=== PATIENT | male | born 2005 | race Caucasian/White ===

== ENCOUNTER 2024-11-19 04:18 | Emergency (ER) | payer OTHER, SELFPAY ==
[2024-11-19 04:22] VITALS: BP 142/98; PULSE 122; RESP 15; TEMP 36.6; O2SAT 100
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
--- OUTSIDE RECORDS SUMMARY | 2024-11-19 05:26 | XMS_ITS | Encounter Summary ---
Author Organization [facility] Address [address] [place] [address] Care Team Providers Care Cut Off Sawyer Name Role Phone Dayanara Perea DO, Santiago B Primary Care Provider Michell Saenz RN Unavailable Michell Saenz RN Unavailable Reason for Visit * Reason Onset Date Comments MEDICATION REFILL 11/08/2017 Encounter Details Date Type Department Care Team (Late st Contact Info) Description 11/08/2017 Refill [facility] Pediatric[facility] - Endocrinology [address] 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 No 09/18/2016 Is person blind or have serious difficulty seein g? No 09/18/2016 Does person have serious dif ficulty walking/climbing stairs? No 09/18/2016 Does person have difficulty dressing/bathing? No 09/18/2016 Does person have difficulty doing errands alone? No 09/18/2016 Cognitive Status Response Date of Assessm ent Does person have difficulty concentrating/remembering/making decisions? No 09/18/2016 documented as of this encounter Plan of Treatment Upcoming Encounters Date Type Department Care Team (Late st Contact Info) Description 02/01/2025 9:30 AM CDT Office Visit [facility] - Internal Med [address] [place] [address] Raj Ladd MD [address] [place] [id number] documented as of this encounter Visit Diagnoses Not on filedocumented in this encounter Additional Health Concerns Infection Onset Date Last Indicated Resolved Time COVID-19 Under Investigation 09/23/2022 09/24/2022 09/24/2022 1:36 AM CASTING REPAIRER COVID-19 Under Investigation 07/28/2023 07/28/2023 07/28/2023 9:35 PM CDT documented as of this encounter Care Teams Cut Off Sawyer Relationship Specialty Start Date End Date Erickson Nichole Jr., DO PCP - General Pediatrics 09/15/16 Michell Saenz RN Residential Mortgage UnderwriterManager Film 08/02/23 08/06/23 Michell Saenz RN Residential Mortgage UnderwriterManager Film 07/06/24 07/10/24 documented as of this encounter
--- OUTSIDE RECORDS SUMMARY | 2024-11-19 05:26 | XMS_ITS | Patient Health Summary ---
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 and somewhat heterogeneous echotexture, most commonly due to fatty infiltration. Reading Radiologist: Mallory Niño on 12/22/2022 at 9:32 AM Narrative 12/22/2022 9:32 AM SHRINK PIT OPERATOR INDICATION: Elevated LFTs COMPARISON: None available. TECHNIQUE: Ultrasound imaging of the abdomen right upper quadrant per department protocol. FINDINGS: Liver: The liver is enlarged with diffusely increased and somewhat heterogeneous echotexture. No intrahepatic biliary ductal dilation is seen. Portal venous flow is hepatopetal. Gallbladder: The lumen is anechoic. There is no gallbladder wall thickening. There is no dilation of the common bile duct. Pancreas: Visualized portions of the pancreas are normal in appearance. Right kidney: 11.4 cm in length. The cortical thickness and echotexture are normal. Other: No fluid or mass is present. Procedure Note [place] Mallory NatashaDO - 12/22/2022 INDICATION: Elevated LFTs COMPARISON: None available. TECHNIQUE: Ultrasound imaging of the abdomen right upper quadrant perdepartment protocol. FINDINGS: Liver: The liver is enlarged with diffusely increased and somewhatheterogeneous echotexture. No intrahepatic biliary ductal dilation is seen. Portalvenous flow is hepatopetal. Gallbladder: The lumen is anechoic. There is no gallbladder wallthickening. There is no dilation of the common bile duct. Pancreas: Visualized portions of the pancreas are normal in appearance. Right kidney: 11.4 cm in length. The cortical thickness and echotextureare normal. Other: No fluid or mass is present. IMPRESSION Enlarged liver with diffusely increased and somewhat heterogeneousechotexture, most commonly due to fatty infiltration. Reading Radiologist: Mallory Niño on 12/22/2022 at 9:32 AM Toni Dover MD US ORDERABLES * PT-INR [facility] (12/18/2022 10:20 AM SHRINK PIT OPERATOR) PT 12.8 12.1 - 14.8 Seconds 12/18/2022 11:[address] [facility] INR 1.0 See Comment 12/18/2022 11:[address] [facility] Comment:The suggested therap eutic range for standard coumadin (warfarin) therapy is an INR of 2.0-3.0. For high-risk patients (Mechanical Mitral Valve Prosthesis, etc.), the suggested prophylactic therapeutic range is an INR of 2.5-3.5. Blood BLOOD SPECIMEN / Unknown Lab Venipuncture / Unknown 12/18/2022 10:20 AM SHRINK PIT OPERATOR 12/18/2022 10:38 AM SHRINK PIT OPERATOR Toni Dover MD LAB - COAGULATION OR DERABLES Performing Organization Address City/[facility]/ZIP Co de Phone Number [address] [address], [facility] [phone] * TISSUE TRANSGLUTAMINASE AB IGA (12/18/2022 10:20 AM SHRINK PIT OPERATOR) Only the most recent of2 resultswithin the time period is included. Tissue Transglutaminase (tTG) Ab, IgA <2 0 - 3 U/mL 12/19/2022 10:47 PM SHRINK PIT OPERATOR [facility] ([facility]) Comment: INTERPRETIVE INFORMATION: Tissue Transglutaminase (tTG) Antibody, IgA 3 U/mL or less: Negative 4-10 U/mL: Weak Positive 11 U/mL or greater: Positive Presence of the tissue transglutaminase (tTG) IgA antibody is associated with glutensensitive enteropathies such as celiac disease and dermatitis herpetiformis. tTG IgA antibody concentrations greater than 40 U/mL usually correlate with results of duodenal biopsies consistent with a diagnosis of celiac disease. For antibody concentrations greater or equal to 4 U/mL but less than or equal to 40 U/mL, additional testing for endomysial (MANSOOR) IgA concentrations may improve the positive predictive value for disease. Performed By: [facility] [address] [place] [address] Professor Of Business: Edward Bridges MD, PhD Blood BLOOD SPECIMEN / Unknown Lab Venipuncture / Unknown 12/18/2022 10:20 AM SHRINK PIT OPERATOR 12/18/2022 10:37 AM SHRINK PIT OPERATOR Toni Dover MD LAB - SEROLOGY ORDER JENNIFER Performing Organization Address City/[facility]/ZIP Co de Phone Number [facility] [address] * [id number] BLOOD PHENOTYPING PANEL (12/18/2022 10:20 AM SHRINK PIT OPERATOR) Dlfug-2-Pnvskzxzfd n Phenotype M1M2 12/21/2022 6:51 PM SHRINK PIT OPERATOR [facility] ([facility]) Comment: The patient appears to have a normal phenotype. All M alleles (including subtypes M1, M2, and M3) produce normal serum concentrations of roupr-6-hasqngbi inhibitor and are not associated with clinical disease. Caution in interpretation is advised if the patient has been transfused within the previous 21 days. Performed By: [facility] [address] [place] [address] Professor Of Business: Edward Bridges MD, PhD Nsvkp-1-Lsqjchbcbj n 104 90 - 200 mg/dL 12/21/2022 6:51 PM SHRINK PIT OPERATOR [facility] ([facility]) Comment:To convert to umol/L , multiply mg/dL by 0.185 Blood BLOOD SPECIMEN / Unknown Lab Venipuncture / Unknown 12/18/2022 10:20 AM SHRINK PIT OPERATOR 12/18/2022 10:37 AM SHRINK PIT OPERATOR Toni Dover MD LAB - CHEMISTRY PAOLA GHOTRA [facility]) [address] [place] [address], [facility] * LINDA BLOOD SCREEN W/REFLEX TITER (12/18/2022 10:20 AM SHRINK PIT OPERATOR) LINDA IgG None Detected None Detected 12/20/2022 9:34 AM SHRINK PIT OPERATOR [facility] ([facility]) Comment: If suspicion of connective tissue disease is strong and LINDA EIA is negative, consider testing for LINDA by IFA ([id number]). INTERPRETIVE INFORMATION: Anti-Nuclear Antibodies (LINDA), IgG by NBA Antinuclear Antibodies (LINDA), IgG by NBA: LINDA specimens are screened using enzyme-linked immunosorbent assay (NBA) methodology. All NBA results reported as Detected are further tested by indirect fluorescent assay (IFA) using HEp-2 substrate with an IgG-specific conjugate. The LINDA NBA screen is designed to detect antibodies against dsDNA, histones, SS-A (Ro), SS-B (La), Patel, Patel/SOFTWARE PROJECT LEAD, Scl-70, Dalila-1, centromeric proteins, other antigens extracted from the HEp-2 cell nucleus. LINDA NBA assays have been reported to have lower sensitivities than LINDA IFA for systemic autoimmune rheumatic diseases (SARD). Negative results do not necessarily rule out SARD. Performed By: [facility] [address] [place] [address] Professor Of Business: Edward Bridges MD, PhD Blood BLOOD SPECIMEN / Unknown Lab Venipuncture / Unknown 12/18/2022 10:20 AM SHRINK PIT OPERATOR 12/18/2022 10:38 AM SHRINK PIT OPERATOR Toni Dover MD LAB - CHEMISTRY PAOLA GHOTRA [facility] [employer]) [address] [place] [id number] * CYTOMEGALOVIRUS ANTIBODY IGG/IGM BLOOD (12/18/2022 10:20 AM SHRINK PIT OPERATOR) Cytomegalovirus Antibody IgG <0.20 U/mL 12/19/2022 4:39 PM SHRINK PIT OPERATOR [facility] [employer] ([facility]) Comment: INTERPRETIVE INFORMATION: Cytomegalovirus Antibody, IgG ??0.59 U/mL or less......... Not Detected ??0.6 - 0.69 U/mL........... Indeterminate-Repeat testing in ? 10-14 days may be helpful. ??0.70 U/mL or greater...... Detected In immunocompromised patients, CMV serology (IgG or IgM antibody titers) may not be reliable and may be misleading in the diagnosis of acute or reactivation CMV disease. The preferred method for diagnosis is culture of virus and/or demonstration of viral antigen in peripheral white cells (buffy coat), bronchoalveolar lavage (BAL) cells, or tissue biopsies. This test should not be used for blood donor screening, associated re-entry protocols, or for screening Human Cell, Tissues and Cellular and Tissue-Based Products (HCT/P). The best evidence for current infection is a significant change on two appropriately timed specimens, where both tests are done in the same laboratory at the same time. Cytomegalovirus Antibody IgM <8.0 <=29.9 AU/mL 12/19/2022 4:39 PM [facility] [employer] ([facility]) Comment: INTERPRETIVE INFORMATION: Cytomegalovirus Antibody, IgM ??29.9 AU/mL or Less ....... Not Detected ??30.0-34.9 AU/mL........... Indeterminate-Repeat testing ? in 10-14 days may be helpful. ??35.0 AU/mL or Greater .... Detected-IgM antibody to CMV ? detected which may indicate a ? current or recent infection. ? However, low levels of IgM ? antibodies may occasionally ? persist for more than 12 ? months post-infection. CMV serology is not useful for the evaluation of active or reactivated infection in immunocompromised patients. Molecular diagnostic tests (i.e. PCR)are preferred in these cases. This test should not be used for blood donor screening, associated re-entry protocols, or for screening Human Cell, Tissues and Cellular and Tissue-Based Products (HCT/P). Performed By: [facility] [address] [place] [address] Professor Of Business: Edward Bridges MD, PhD Blood BLOOD SPECIMEN / Unknown Lab Venipuncture / Unknown 12/18/2022 10:20 AM SHRINK PIT OPERATOR 12/18/2022 10:37 AM SHRINK PIT OPERATOR Toni Dover MD LAB - CHEMISTRY PAOLA GHOTRA [facility]) [address] * MICROSOMAL ANTIBODY LIVER/KIDNEY (12/18/2022 10:20 AM SHRINK PIT OPERATOR) Liver/Kidney Microsomal Antibody IgG <1:20 <1:20 12/20/2022 2:39 PM SHRINK PIT OPERATOR [facility] ([facility]) Comment: INTERPRETIVE INFORMATION: ??Kpbjd-Gfinzn-Qccxyruwk Abs, IgG Liver-Kidney Microsome IgG antibody (anti-LKM), as detected by indirect immunofluorescent antibody (IFA) techniques, may be observed in patients with autoimmune hepatitis type 2 (AIH-2), AIH-2 associated with autoimmune olbojtcjwekygcsdlq-yynfvykbfme-xrajwzebgr dystrophy (APECED), viral hepatitis C or D, and some forms of drug-induced hepatitis. This IFA does not differentiate among the four types of LKM antibodies (LKM-1, LKM-2, LKM-3, and a fourth type that recognizes CY and CY antigens). Of these, anti-LKM-1 (cytochrome [id number]) IgG antibodies are considered specific for AIH-2. This test was developed and its performance characteristics determined by [facility]. It has not been cleared or approved by the US Food and Drug Administration. This test was performed in a CLIA certified laboratory and is intended for clinical purposes. Performed By: [place] [address] Professor Of Business: Edward Bridges MD, PhD Blood BLOOD SPECIMEN / Unknown Lab Venipuncture / Unknown 12/18/2022 10:20 AM SHRINK PIT OPERATOR 12/18/2022 10:37 AM SHRINK PIT OPERATOR Toni Dover MD LAB - CHEMISTRY PAOLA GHOT[place] [facility] ([facility]) [address] * (ABNORMAL) DAVID-HUERTA VIRUS ANTIBODY PANEL (12/18/2022 10:20 AM SHRINK PIT OPERATOR) David-Huerta Viral Capsid Antigen Antibody IgM <36.0 0.0 - 35.9 U/mL 12/21/2022 2:09 PM SHRINK PIT OPERATOR [facility] ([facility]) Comment: ? Negative ?<36.0 ? Equivocal 36.0 - 43.9 ? Positive ?>43.9 David-Huerta Viral Capsid Antigen Antibody IgG >600.0(H) 0.0 - 17.9 U/mL 12/21/2022 2:09 PM SHRINK PIT OPERATOR [facility] ([facility]) Comment: ? Negative ?<18.0 ? Equivocal 18.0 - 21.9 ? Positive ?>21.9 David-Huerta Virus Antibody IgG Nuclear Antigen >600.0(H) 0.0 - 17.9 U/mL 12/21/2022 2:09 PM SHRINK PIT OPERATOR [facility] ([facility]) Comment: ? Negative ?<18.0 ? Equivocal 18.0 - 21.9 ? Positive ?>21.9 Interpretation David Huerta Virus Comment 12/21/2022 2:09 PM SHRINK PIT OPERATOR [facility] ([facility]) Comment: ? EBV Interpretation Chart Uribe: Antibody Present + ?Antibody Absent - Interpretation ? VCA-IgM ?? VCA-IgG ??EBNA-IgG No previous infection/ ?- ? - ? - Susceptible Primary infection (new ?+ ? + ? - or recent) Past Infection ? +or- ? + ? + See comment below* ?+ ? - ? - *Results indicate infection with EBV at some time however cannot predict the timing of the infection since antibodies to EBNA usually develop after primary infection or, alternatively, approximately 5-10% of patients with EBV never develop antibodies to EBNA. Blood BLOOD SPECIMEN / Unknown Lab Venipuncture / Unknown 12/18/2022 10:20 AM SHRINK PIT OPERATOR 12/18/2022 10:37 AM SHRINK PIT OPERATOR Narrative [facility] ([facility]) - 12/21/2022 2:09 PM SHRINK PIT OPERATOR Performed at: ??01 - [facility] [address] [place], [place] ??[id number] Host/Hostess: Yasmany Love PhD, Phone: ??[phone] Toni Dover MD LAB - CHEMISTRY PAOLA GHOTRA Performing Organization Address City/State/[facility] Co de Phone Number [facility]) [address] [place] [address] * SMOOTH MUSCLE ANTIBODY (12/18/2022 10:20 AM SHRINK PIT OPERATOR) Actin (Smooth Muscle) Antibody 3 0 - 19 Units 12/19/2022 4:09 PM SHRINK PIT OPERATOR [facility] ([facility]) Comment: ? Negative ? 0 - 19 ? Weak positive ? 20 - 30 ? Moderate to strong positive ? >30 Actin Antibodies are found in 52-85% of patients with autoimmune hepatitis or chronic active hepatitis and in 22% of patients with primary biliary cirrhosis. Blood BLOOD SPECIMEN / Unknown Lab Venipuncture / Unknown 12/18/2022 10:20 AM SHRINK PIT OPERATOR 12/18/2022 10:37 AM SHRINK PIT OPERATOR Narrative [facility] ([facility]) - 12/19/2022 4:09 PM SHRINK PIT OPERATOR Performed at: ??01 - [facility] [place] [address] [facility], [place], [place] ??[id number] Host/Hostess: Yasmany Love PhD, Phone: ??[phone] Toni Dover MD LAB - SEROLOGY ORDER JENNIFER [facility] ([facility]) [address] [place] [address] * (ABNORMAL) COMPREHENSIVE METABOLIC PANEL (12/18/2022 10:20 AM SHRINK PIT OPERATOR) Only the most recent of4 resultswithin the time period is included. BUN 18 7 - 26 mg/dL 12/18/2022 11:[address] [facility] Creatinine 0.50(L) 0.71 - 1.16 mg/dL 12/18/2022 11:13 AM [facility] Sodium 139 136 - 145 mmol/L 12/18/2022 11:13 AM [facility] Potassium 4.6(H) 3.5 - 4.5 mmol/L 12/18/2022 11:13 AM [facility] Comment:Hemolysis detected i n this specimen. Hemolysis may cause false elevations in potassium leading to pseudohyperkalemia or masked hypokalemia. Recommend repeat testing if clinically indicated. Chloride 102 98 - 107 mmol/L 12/18/2022 11:[address] [facility] CO2 22 22 - 29 mmol/L 12/18/2022 11:13 AM [facility] Glucose 233(H) 70 - 115 mg/dL 12/18/2022 11:13 AM [facility] Calcium 10.1 8.4 - 10.2 mg/dL 12/18/2022 11:13 AM [facility] Protein Total 7.6 6.0 - 8.3 g/dL 12/18/2022 11:13 AM [facility] Comment:Hemolysis detected i n this specimen. Hemolysis is known to cause elevations in this analyte. Caution should be exercised in the interpretation of this result. Recommend repeat testing if clinically indicated. Albumin 3.9 3.4 - 5.0 g/dL 12/18/2022 11:13 AM [facility] Bilirubin Total 0.5 0.2 - 1.2 mg/dL 12/18/2022 11:13 AM [facility] Alkaline Phosphatase 91 40 - 150 U/L 12/18/2022 11:13 AM [facility] ALT 116(H) 5 - 55 U/L 12/18/2022 11:13 AM [facility] AST 77(H) 5 - 34 U/L 12/18/2022 11:13 AM [facility] Comment:Hemolysis detected i n this specimen. Hemolysis is known to cause elevations in this analyte. Caution should be exercised in the interpretation of this result. Recommend repeat testing if clinically indicated. Anion Gap 20(H) 8 - 18 12/18/2022 11:13 AM [facility] BUN/Creatinine Ratio 36(H) 7 - 23 12/2022 11:13 AM [facility] Osmolality Calculated 297 270 - 300 mOsm/kg 12/18/2022 11:13 AM [facility] Albumin/Globulin Ratio 1.1 1.1 - 2.3 12/18/2022 11:13 AM [facility] eGFR by CKD-EPI >90 >=90 mL/min/1 .73 m2 12/18/2022 11:13 AM [facility] Blood BLOOD SPECIMEN / Unknown Lab Venipuncture / Unknown 12/18/2022 10:20 AM [facility] 12/18/2022 10:38 AM [facility] Nina Mueller DO LAB - CHEMISTRY PAOLA GHOTRA [facility] [address] [place] [address], [facility] [phone] * (ABNORMAL) LDL CHOLESTEROL DIRECT (12/18/2022 10:20 AM [facility]) LDL Direct 101(H) <100 mg/dL 12/18/2022 11:26 AM [facility] Comment: ATP III Classification of LDL Cholesterol: ?<100 mg/dL: ??Optimal ? 100 - 129 mg/dL: ??Near Optimal/Above Optimal ? 130 - 159 mg/dL: ??Borderline High ? 160 - 189 mg/dL: ??High ?>190 mg/dL: ??Very High Blood BLOOD SPECIMEN / Unknown Lab Venipuncture / Unknown 12/18/2022 10:20 AM SHRINK PIT OPERATOR 12/18/2022 10:38 AM SHRINK PIT OPERATOR Toni Dover MD LAB - CHEMISTRY PAOLA GHOTRA Performing Organization Address [facility] de Phone Number [address] [address], [facility] [phone] * GGT (12/18/2022 10:20 AM SHRINK PIT OPERATOR) Only the most recent of2 resultswithin the time period is included. GGT 42 9 - 64 Units/L 12/18/2022 11:13 AM SHRINK PIT OPERATOR [facility] Blood BLOOD SPECIMEN / Unknown Lab Venipuncture / Unknown 12/18/2022 10:20 AM SHRINK PIT OPERATOR 12/18/2022 10:38 AM SHRINK PIT OPERATOR Nina Mueller DO LAB - CHEMISTRY PAOLA GHOTRA Performing Organization Address [facility] de Phone Number [address] [address], [place] [phone] * BILIRUBIN DIRECT (12/18/2022 10:20 AM SHRINK PIT OPERATOR) Bilirubin Conjugated 0.1 0.1 - 0.5 mg/dL 12/18/2022 11:13 AM SHRINK PIT OPERATOR [facility] Blood BLOOD SPECIMEN / Unknown Lab Venipuncture / Unknown 12/18/2022 10:20 AM SHRINK PIT OPERATOR 12/18/2022 10:38 AM SHRINK PIT OPERATOR Toni Dover MD LAB - CHEMISTRY PAOLA GHOTRA Performing Organization Address City/[facility]/ZIP Co de Phone Number [place] [address] [place] [address], [facility] [phone] * HEPATITIS SCREEN ACUTE (12/18/2022 10:20 AM SHRINK PIT OPERATOR) Hepatitis A Virus Antibody IgM Non-react lizeth Non-reac tive 12/18/2022 11:26 AM SHRINK PIT OPERATOR [facility] Hepatitis B Virus Surface Antigen Non-react lizeth Non-reac tive 12/18/2022 11:26 AM [facility] Hepatitis B Core Virus Antibody IgM Non-react lizeth Non-reac tive 12/18/2022 11:26 AM [facility] Hepatitis C Antibody Non-react lizeth Non-reac tive 12/18/2022 11:26 AM [facility] Comment:Hepatitis C Antibody screen indicates no serologic evidence of past or current infection with Hepatitis C Virus. Patients with unexplained liver disease who are immunocompromised or suspected of having acute Hepatitis C infection may benefit from Nucleic Acid Test (JAKE) for Hepatitis C Viral RNA to confirm Hepatitis C status. Blood BLOOD SPECIMEN / Unknown Lab Venipuncture / Unknown 12/18/2022 10:20 AM SHRINK PIT OPERATOR 12/18/2022 10:37 AM SHRINK PIT OPERATOR Toni Dover MD LAB - CHEMISTRY PAOLA GHOTRA [address] [address], [facility] [phone] * IGA BLOOD (12/18/2022 10:20 AM SHRINK PIT OPERATOR) Only the most recent of2 resultswithin the time period is included. IgA 163 61 - 356 mg/dL 12/18/2022 11:07 AM [facility] Blood BLOOD SPECIMEN / Unknown Lab Venipuncture / Unknown 12/18/2022 10:20 AM SHRINK PIT OPERATOR 12/18/2022 10:37 AM SHRINK PIT OPERATOR Toni Dover MD LAB - CHEMISTRY PAOLA GHOTRA [address] [address], [facility] [phone] * (ABNORMAL) LIPID PROFILE (12/18/2022 10:20 AM SHRINK PIT OPERATOR) Only the most recent of4 resultswithin the time period is included. Cholesterol Total 183 <200 mg/dL 12/18/2022 11:13 AM [facility] HDL 59 >40 mg/dL 12/18/2022 11:13 AM [facility] Comment: ATP III Classification of HDL Cholesterol: ? <40 mg/dL: ??Considered a major risk factor. ? >60 mg/dL: ??Considered a negative risk factor. ? LDL Calculated 12/18/2022 11:13 AM [facility] Comment:Calculation of LDL v alue was not performed because triglyceride concentrations greater than 400 mg/dL render the calculated value invalid. For this reason, the LDL Direct assay for measurement of LDL Cholesterol has been performed (per laboratory protocol). Triglycerides 405(H) <150 mg/dL 12/18/2022 11:13 AM [facility] Comment: ATP III Classification of Triglycerides: ?<150 mg/dL: ??Normal ? 150 - 199 mg/dL: ??Borderline High ? 200 - 400 mg/dL: ??High ?>500 mg/dL: ??Very High Blood BLOOD SPECIMEN / Unknown Lab Venipuncture / Unknown 12/18/2022 10:20 AM SHRINK PIT OPERATOR 12/18/2022 10:38 AM SHRINK PIT OPERATOR Toni Dover MD LAB - CHEMISTRY PAOLA GHOTRA [facility] [address] [place] [address], [facility] [phone] * (ABNORMAL) GLUCOSE - POINT OF CARE (AMB) STL (12/02/2022 10:48 AM SHRINK PIT OPERATOR) Glucose 280(A) 60 - 100 mg/dL [facility] Lot # [id number] [facility] Expiration Date [facility] QC Verified Yes Yes [facility] Blood BLOOD SPECIMEN / Unknown 12/02/2022 10:48 AM SHRINK PIT OPERATOR Erickson Nichole Jr. DO LAB - POINT OF CARE ORDERABLES [facility] [address] [phone] * TSH REFLEX FREE T4 (11/26/2022 3:15 PM SHRINK PIT OPERATOR) Only the most recent of2 resultswithin the time period is included. TSH 0.666 0.350 - 4.940 uIU/mL 11/26/2022 4:34 PM SHRINK PIT OPERATOR [facility] Blood BLOOD SPECIMEN / Unknown Lab Venipuncture / Unknown 11/26/2022 3:15 PM SHRINK PIT OPERATOR 11/26/2022 3:36 PM SHRINK PIT OPERATOR Nina Mueller DO LAB - CHEMISTRY ORDE JAMAALSUGAR Performing Organization Address [facility]/ZIP Co de Phone Number [address] [address], [facility] [phone] * T4 FREE (11/26/2022 3:15 PM SHRINK PIT OPERATOR) T4 Free 0.9 0.7 - 1.5 ng/dL 11/26/2022 4:34 PM SHRINK PIT OPERATOR [facility] Blood BLOOD SPECIMEN / Unknown Lab Venipuncture / Unknown 11/26/2022 3:15 PM SHRINK PIT OPERATOR 11/26/2022 3:36 PM SHRINK PIT OPERATOR Nina Mueller DO LAB - CHEMISTRY ORDE JAMAALSUGAR Performing Organization Address City/[facility]/ZIP Co de Phone Number [address] [address], [facility] [phone] * XR CHEST 2VW (11/26/2022 3:10 PM SHRINK PIT OPERATOR) Anatomical Region Laterality Modality Chest Radiographic Catalina ging 11/26/2022 3:17 PM SHRINK PIT OPERATOR Impressions 11/26/2022 3:18 PM SHRINK PIT OPERATOR Normal chest. Reading Radiologist: Lucrecia Mckeon on 11/26/2022 at 3:18 PM Narrative 11/26/2022 3:18 PM SHRINK PIT OPERATOR INDICATION: Type 1 diabetes; history of pneumomediastinum COMPARISON: None available. TECHNIQUE: Frontal and lateral radiographs of the chest. FINDINGS: The heart is normal in size. The lungs are clear. There is no pneumothorax or pleural effusion. The upper abdomen is normal. No acute osseous abnormality is seen. Procedure Note Lucrecia Rosado MD - 11/26/2022 INDICATION: Type 1 diabetes; history of pneumomediastinum COMPARISON: None available. TECHNIQUE: Frontal and lateral radiographs of the chest. FINDINGS: The heart is normal in size. The lungs are clear. There is no pneumothorax or pleural effusion. The upper abdomen is normal. No acute osseous abnormality is seen. IMPRESSION Normal chest. Reading Radiologist: Lucrecia Mckeon on 11/26/2022 at 3:18 PM Nina Mueller DO DIAGNOSTIC IMAGING O RDERABLES * (ABNORMAL) HEPATIC FUNCTION PANEL (10/21/2022 9:23 AM SHRINK PIT OPERATOR) Protein Total 5.9(L) 6.0 - 8.3 g/dL 023 10:[address] [facility] Albumin 2.8(L) 3.4 - 5.0 g/dL 10/21/2022 10:[address] [facility] Bilirubin Total 0.6 0.3 - 1.2 mg/dL 01/2023 10:[address] [facility] Bilirubin Conjugated 0.3 0.1 - 0.5 mg/dL 10/21/2022 10:08 AM [facility] Bilirubin Unconjugated 0.3 Unconjugated Bilirubin is a calculated value: Reference ranges have not been established. mg/dL 10/21/2022 10:[address] [facility] Alkaline Phosphatase 118 100 - 390 U/L 10/21/2022 10:[address] [facility] ALT 57(H) 5 - 55 U/L 10/21/2022 10:08 AM SHRINK PIT OPERATOR [facility] AST 60(H) 3 - 35 U/L 10/21/2022 10:08 AM SHRINK PIT OPERATOR [facility] Blood BLOOD SPECIMEN / Unknown Venipuncture / Unknown 10/21/2022 9:23 AM SHRINK PIT OPERATOR 10/21/2022 9:31 AM SHRINK PIT OPERATOR Grace Moss DO LAB - CHEMISTRY OR DERABLES [facility] [address] [place] [address], [facility] [phone] * XR CHEST PORTABLE/BEDSIDE (10/20/2022 11:48 PM SHRINK PIT OPERATOR) Anatomical Region Laterality Modality Chest Radiographic Catalina ging 10/21/2022 8:10 AM SHRINK PIT OPERATOR Impressions 10/21/2022 9:41 AM SHRINK PIT OPERATOR IMPRESSION: 1.Trace pneumomediastinum. Subcutaneous emphysema in the neck soft tissues. 2.Clear lungs. These findings were discussed in detail with the patient's care provider, Dr. Jamaal Smith by Dr. Kishan Zuniga via telephone at 0816 hours on 10/21/2022 with readback comprehension and verification. Report dictated by Kishan Zuniga MD, PhD (residential appraiser). I, Christopher Martell MD have personally reviewed and interpreted this examination/study. > Interpreting Provider: Christopher Martell MD on 10/21/2022 9:41 AM Narrative 10/21/2022 9:41 AM SHRINK PIT OPERATOR PROCEDURE: ??XR CHEST 1VW, DATE/TIME OF EXAM: ??10/20/2022 11:48 PM, LOCATION [facility] INDICATION: R05.1: Acute cough ADDITIONAL CLINICAL INFORMATION: Ordering Provider Reason For Exam: Technologist Note: Additional: ??16-year-old male, PMHx: T1DM admitted for DKA. COMPARISON: None. TECHNIQUE: Supine frontal radiograph of the abdomen. FINDINGS: Subcutaneous air is seen in soft tissues of the neck. Trace pneumomediastinum along the left mediastinal contour. The heart is normal in size. The lungs are clear. There is no pneumothorax or pleural effusion. The upper abdomen is normal. No bone abnormality is seen. Procedure Note Christopher Martell MD - 10/21/2022 PROCEDURE: XR CHEST 1VW, DATE/TIME OF EXAM: 10/20/2022 11:48 PM, LOCATION [facility] INDICATION: R05.1: Acute cough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 MICROBIOLOGY O RDERABLES [facility] [address] [place] [id number] [place] [address] * XR ABDOMENT 1VW (10/28/2013 6:47 PM SHRINK PIT OPERATOR) Anatomical Region Laterality Modality Abdomen Radiographic Catalina ging 10/28/2013 8:47 PM SHRINK PIT OPERATOR Narrative 10/28/2013 8:48 PM SHRINK PIT OPERATOR Examination: Abdomen KUB. Indication for examination: Epigastric pain. Single AP view of the abdomen shows a grossly normal bowel gas pattern without ileus or mechanical obstruction. There is considerable stool in the colon. There is no gross mass lesion. Bony structures appear intact. Conclusion: No ileus or obstruction. Considerable stool. Procedure Note Soto Quintero MD - 10/28/2013 Examination: Abdomen KUB. Indication for examination: Epigastric pain. Single AP view of the abdomen shows a grossly normal bowel gas pattern without ileus or mechanical obstruction. There is considerable stool in the colon. There is no gross mass lesion. Bony structures appear intact. Conclusion: No ileus or obstruction. Considerable stool. Belkys Armenta MD DIAGNOSTIC IMAGING O [facility] Care Teams Mortgage Loan Interviewer Relationship Specialty Start Date End Date Erickson Nichole Jr., DO PCP - General Pediatrics 09/15/16
--- OUTSIDE RECORDS SUMMARY | 2024-11-19 05:26 | XMS_ITS | Encounter Summary ---
Author Organization [facility] Address [address] [place] [address] Care Team Providers Care Contracts Intern Name Role Phone Dayanara Perea DO, Santiago B Primary Care Provider Michell Saenz RN Unavailable Michell Saenz RN Unavailable Encounter Details Date Type Department Care Team (Late st Contact Info) Description 06/18/[address] [facility] Pediatrics - Endocrinology [address] [place] [address] Grace Moss DO [address] [place] [address] Social History Tobacco Use Types Packs/Day Years Used Date Smoking Tobacco: Never Smokeless Tobacco: Never Alcohol Use Standard Drinks/Week Comments No 0 (1 standard drink = 0.6 oz pur e alcohol) Sex and Gender Information Value Date Recorded Sex Assigned at Male 11/11/2024 3:41 PM STEEL SPAR OPERATOR Gender Identity Male 11/11/2024 3:41 PM STEEL SPAR OPERATOR Sexual Orientation Straight 11/11/2024 3: 41 PM STEEL SPAR OPERATOR documented as of this encounter Functional Status Functional Status Response Date of Assess ment Is person deaf or have serious hearing difficult y? No 06/16/2022 Is person blind or have serious difficulty seein g? No 06/16/2022 Does person have serious dif ficulty walking/climbing stairs? No 06/16/2022 Does person have difficulty dressing/bathing? No 06/16/2022 Does person have difficulty doing errands alone? No 06/16/2022 Cognitive Status Response Date of Assessm ent Does person have difficulty concentrating/remembering/making decisions? No 06/16/2022 documented as of this encounter Miscellaneous Notes * Telephone Encounter - Grace Moss DO - 06/19/2022 10:43 AM CDT [LATE ENTRY] Mom called last night through the exchange for blood sugar review blood sugars. See flowsheet. I returned the call. On further discussion, he restarted his pump yesterday morning. He did not have his PDM with him to tell me settings (they were at gas station on the way home). I called back subsequently when they were planned to be home for settings. Mom had a picture of settings, but Guicho left. Mom reported settings of: Correction factor 50 Carb ratio 1:7 at all times Max bolus of 20 units She did not have basal settings. I recommended to review basal settings as soon as he is home. If his basal is set at less than 1, please call so we can increase basal rate. Otherwise call tomorrow to review blood sugars and have all settings available. documented in this encounter Plan of Treatment Upcoming Encounters Date Type Department Care Team (Late st Contact Info) Description 02/01/2025 9:30 AM CDT Office Visit [facility] - Internal Med [address] [facility] [address] [place] [phone] Raj Ladd MD [address] [place] [address] documented as of this encounter Visit Diagnoses Not on filedocumented in this encounter Additional Health Concerns Infection Onset Date Last Indicated Resolved Time COVID-19 Under Investigation 09/23/2022 09/24/2022 09/24/2022 1:36 AM STEEL SPAR OPERATOR COVID-19 Under Investigation 07/28/2023 07/28/2023 07/28/2023 9:35 PM CDT documented as of this encounter Care Teams Contracts Intern Relationship Specialty Start Date End Date Erickson Nichole Jr., PCP - General Pediatrics 09/15/16 Michell Saenz, RN Water Team LeaderBand Edger 08/02/23 08/06/23 Michell Saenz RN Water Team LeaderBand Edger 07/06/24 07/10/24 documented as of this encounter
--- OUTSIDE RECORDS SUMMARY | 2024-11-19 05:26 | XMS_ITS | Referral Summary ---
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 Is person deaf or have serious hearing difficult y? No 07/03/2024 Is person blind or have serious difficulty seein g? No 07/03/2024 Does person have serious dif ficulty walking/climbing stairs? No 07/03/2024 Does person have difficulty dressing/bathing? No 07/03/2024 Does person have difficulty doing errands alone? No 07/03/2024 Cognitive Status Response Date of Assessm ent Does person have difficulty concentrating/remembering/making decisions? No 07/03/2024 Plan of Treatment Upcoming Encounters Date Type Department Care Team (Late st Contact Info) Description 02/01/2025 9:30 AM CDT Office Visit [facility] - Internal Med [address] [facility] [phone] Raj Ladd MD [address] [place] [address] Goals Goal Patient Goal Type Associated Problems Recent Progress Patient-Stated? Author Use safety retraint in car Lifestyle On track( 023 12:25 PM VALVE PIPE IRRIGATOR) No Libby Shipley Procedures Procedure Name Priority Date/Time Associated Diagnosis Comments HEMOGLOBIN A1C - POINT OF CARE (AMB) [facility] Routine 10/02/2024 9:26 AM VALVE PIPE IRRIGATOR Type 1 diabetes mellitus without complication (HCC) BASIC METABOLIC PANEL (CALCIUM TOTAL) Routine 07/05/2024 4:00 AM CDT MICROALB/CREAT RATIO URINE RANDOM PANEL Routine 07/30/2023 12:44 PM CDT HEPATITIS SCREEN ACUTE Routine 12/18/2022 10:20 AM VALVE PIPE IRRIGATOR Elevated LFTs from Last 3 Months or Most Recently Relevant to Health Maintenance Results * HEMOGLOBIN A1C - POINT OF CARE (AMB) [facility] (10/02/2024 9:26 AM VALVE PIPE IRRIGATOR) Hemoglobin A1c POCT 8.6 % CURTIS You SWIFT MARIANO ANGELES BLOOD SPECIMEN / Unknown 10/02/2024 9:26 AM VALVE PIPE IRRIGATOR Laura Rivas PACKING AND WRAPPING SUPERVISOR-DIRECTOR TELECOMMUNICATIONS LAB - POINT OF CARE ORDERABLES CURTIS You [address]ICA [address] [place] [address], [facility] [phone] * (ABNORMAL) BASIC METABOLIC PANEL (CALCIUM TOTAL) (07/05/2024 4:00 AM CDT) Pathologist [facility] BUN 10 7 - 26 mg/dL 07/05/2024 4:49 AM [facility] Creatinine 0.54(L) 0.71 - 1.16 mg/dL 07/05/2024 4:49 AM [facility] Sodium 138 136 - 145 mmol/L 07/05/2024 4:49 AM [facility] Potassium 3.4(L) 3.5 - 4.5 mmol/L 07/05/2024 4:49 AM [facility] Chloride 109(H) 98 - 107 mmol/L 07/05/2024 4:49 AM [facility] CO2 23 22 - 29 mmol/L 07/05/2024 4:49 AM [facility] Glucose 110 70 - 115 mg/dL 07/05/2024 4:49 AM [facility] Calcium 8.0(L) 8.4 - 10.2 mg/dL 07/05/2024 4:49 AM [facility] Anion Gap 6 6 - 16 07/05/2024 4:49 AM [facility] BUN/Creatinine Ratio 19 7 - 23 07/05/2024 4:49 AM [facility] Osmolality Calculated 286 275 - 295 mOsm/kg 07/05/2024 4:49 AM [facility] eGFR by CKD-EPI >90 >=90 mL/min/1.7 3 m2 07/05/2024 4:49 AM CDT [facility] Blood BLOOD SPECIMEN / Unknown Lab Venipuncture / Unknown 07/05/2024 4:00 AM CDT 07/05/2024 4:11 AM CDT Armand Hogan MD LAB - CHEMISTRY [facility] Performing Organization Address City/[facility]/ZIP Co de Phone Number [facility] [address] [place] [address], [facility] [phone] * MICROALB/CREAT RATIO URINE RANDOM PANEL (07/30/2023 12:44 PM CDT) Albumin Random Urine <5.0 Not Established ug/mL 07/30/2023 1:19 PM CDT [facility] Creatinine Urine 19.80 Not Established mg/dL 07/30/2023 1:19 PM T [facility] Urine Albumin/Creati nine Ratio <25 <30 mg/g 07/30/2023 1:19 PM T [facility] Albumin/Creati nine Ratio Urine See Comment <30 mg/g 07/30/2023 1:19 PM T [facility] Comment:Unable to calculate the Urine Albumin/Creatinine Ratio due to one or more analyte concentration(s) being outside the measuring limits of the instrument. Urine URINE SPECIMEN OBTAINED BY CLEAN CATCH PROCEDURE / Unknown Collection / Unknown 07/30/2023 12:44 PM CDT 07/30/2023 12:57 PM CDT Nina Mueller DO LAB - URINE CHEMISTR Y ORDERABLES Performing Organization Address City/[facility]/ZIP Co de Phone Number [address] [address], [facility] [phone] * HEPATITIS SCREEN ACUTE (12/18/2022 10:20 AM VALVE PIPE IRRIGATOR) Hepatitis A Virus Antibody IgM Non-react lizeth Non-reac tive 12/18/2022 11:26 AM VALVE PIPE IRRIGATOR [facility] Hepatitis B Virus Surface Antigen Non-react lizeth Non-reac tive 12/18/2022 11:26 AM [facility] Hepatitis B Core Virus Antibody IgM Non-react lizeth Non-reac tive 12/18/2022 11:26 AM [facility] Hepatitis C Antibody Non-react lizeth Non-reac tive 12/18/2022 11:26 AM [facility] Comment:Hepatitis C Antibody screen indicates no serologic evidence of past or current infection with Hepatitis C Virus. Patients with unexplained liver disease who are immunocompromised or suspected of having acute Hepatitis C infection may benefit from Nucleic Acid Test (JAKE) for Hepatitis C Viral RNA to confirm Hepatitis C status. Blood BLOOD SPECIMEN / Unknown Lab Venipuncture / Unknown 12/18/2022 10:20 AM VALVE PIPE IRRIGATOR 12/18/2022 10:37 AM [facility] Toni Dover MD LAB - CHEMISTRY [facility] Organization Address City/State/ZIP Co de Phone Number [facility] [address] [place] [address], [facility] [phone] from Last 3 Months or Most Recently Relevant to Health Maintenance Administered Medications Advance Directives * Full Code (Latest Code Status on File) Date Activated Date Inactivated Comments 07/28/2023 11:00 PM 07/30/2023 3:27 PM * Full Code Date Activated Date Inactivated Comments 10/20/2022 10:47 PM 10/21/2022 5:06 PM * Full Code Date Activated Date Inactivated Comments 06/16/2022 1:17 PM 06/17/2022 4:17 PM * Full Code Date Activated Date Inactivated Comments 10/15/2019 2:30 PM 10/16/2019 2:40 PM * Full Code Date Activated Date Inactivated Comments 10/08/2019 1:31 PM 10/09/2019 2:26 PM Care Teams Routing Equipment Tender Relationship Specialty Start Date End Date Erickson Nichole Jr., PCP - General Pediatrics 09/15/16
--- OUTSIDE RECORDS SUMMARY | 2024-11-19 05:26 | XMS_ITS | Encounter Summary ---
Author Organization [facility] Address [address] [facility] [place] [address] Care Team Providers Care Burr Sander Name Role Phone Dayanara Perea DO, Santiago B Primary Care Provider Michell Saenz RN Unavailable Michell Saenz RN Unavailable Reason for Visit * Reason Onset Date Comments MEDICATION REFILL 08/12/2017 Encounter Details Date Type Department Care Team (Late st Contact Info) Description 08/12/2017 Refill [facility] Pediatrics - Endocrinology [address] [place] [address] Farooq Bradshaw MD [address] [place] [address] MEDICATION REFILL Social History Tobacco Use Types Packs/Day Years Used Date Smoking Tobacco: Never Smokeless Tobacco: Never Alcohol Use Standard Drinks/Week Comments No 0 (1 standard drink = 0.6 oz pur e alcohol) Sex and Gender Information Value Date Recorded Sex Assigned at Male 11/11/2024 3:41 PM TECHNICIAN Gender Identity Male 11/11/2024 3:41 PM TECHNICIAN Sexual Orientation Straight 11/11/2024 3: 41 PM TECHNICIAN documented as of this encounter Functional Status [...] Description 02/01/2025 9:30 AM CDT Office Visit [facility] - Internal Med [address] [facility] [place] [address] Raj Ladd MD [address] [place] [phone] documented as of this encounter Visit Diagnoses Not on filedocumented in this encounter Additional Health Concerns Infection Onset Date Last Indicated Resolved Time COVID-19 Under Investigation 09/23/2022 09/24/2022 09/24/2022 1:36 AM TECHNICIAN COVID-19 Under Investigation 07/28/2023 07/28/2023 07/28/2023 9:35 PM CDT documented as of this encounter Care Teams Burr Sander Relationship Specialty Start Date End Date Erickson Nichole Jr., PCP - General Pediatrics 09/15/16 Michell Saenz RN Chemical Production EngineerSilk Hanger 08/02/23 08/06/23 Michell Saenz RN Chemical Production EngineerSilk Hanger 07/06/24 07/10/24 documented as of this encounter
--- OUTSIDE RECORDS SUMMARY | 2024-11-19 05:26 | XMS_ITS | Encounter Summary ---
Author Organization [facility] Address [address] [facility] [place] [address] Care Team Providers Care Tool Designer Name Role Phone Dayanara Perea DO, Santiago B Primary Care Provider Michell Saenz RN Unavailable Michell Saenz RN Unavailable Reason for Visit * Reason Comments Refill Request Encounter Details Date Type Department Care Team (Late st Contact Info) Description 08/12/2021 Refill [facility] Pediatrics - Endocrinology [address] [place] [address] Alejandro Broderick, SENIOR IT RECRUITER-HEAVY MACHINERY OPERATOR [address] [place] [address] Refill Request Social History Tobacco Use Types Packs/Day Years Used Date Smoking Tobacco: Never Smokeless Tobacco: Never Alcohol Use Standard Drinks/Week Comments No 0 (1 standard drink = 0.6 oz pur e alcohol) Sex and Gender Information Value Date Recorded Sex Assigned at Male 11/11/2024 3:41 PM COLLECTION SYSTEMS ADMINISTRATOR Gender Identity Male 11/11/2024 3:41 PM COLLECTION SYSTEMS ADMINISTRATOR Sexual Orientation Straight 11/11/2024 3: 41 PM COLLECTION SYSTEMS ADMINISTRATOR documented as of this encounter Functional Status Functional Status Response Date of Assess ment Is person deaf or have serious hearing difficult y? No 10/16/2019 Is person blind or have serious difficulty seein g? No 10/16/2019 Does person have serious dif ficulty walking/climbing stairs? No 10/16/2019 Does person have difficulty dressing/bathing? No 10/16/2019 Does person have difficulty doing errands alone? No 10/16/2019 Cognitive Status Response Date of Assessm ent Does person have difficulty concentrating/remembering/making decisions? No 10/16/2019 documented as of this encounter Plan of Treatment Upcoming Encounters Date Type Department Care Team (Late st Contact Info) Description 02/01/2025 9:30 AM CDT Office Visit [facility] - Internal Med [address] [place] [address] Raj Ladd MD [address] [place] [phone] documented as of this encounter Visit Diagnoses Diagnosis Type 1 diabetes mellitus without complication (HCC) Type I (juvenile type) diabetes mellitus without mention of complication, not stated as uncontrolled documented in this encounter Additional Health Concerns Infection Onset Date Last Indicated Resolved Time COVID-19 Under Investigation 09/23/2022 09/24/2022 09/24/2022 1:36 AM COLLECTION SYSTEMS ADMINISTRATOR COVID-19 Under Investigation 07/28/2023 07/28/2023 07/28/2023 9:35 PM CDT documented as of this encounter Care Teams Tool Designer Relationship Specialty Start Date End Date Erickson Nichole Jr., PCP - General Pediatrics 09/15/16 Michell Saenz RN Interactive Media Marketing DirectorBuffing Wheel Presser 08/02/23 08/06/23 Michell Saenz RN Interactive Media Marketing DirectorBuffing Wheel Presser 07/06/24 07/10/24 documented as of this encounter
--- OUTSIDE RECORDS SUMMARY | 2024-11-19 05:27 | XMS_ITS | Encounter Summary ---
Author Organization [facility] Address [address] [facility] [place] [address] Care Team Providers Care Assistant Maintenance Manager Name Role Phone Dayanara Perea DO, Santiago B Primary Care Provider Michell Saenz RN Unavailable Michell Saenz RN Unavailable Reason for Visit * Reason Onset Date Comments Encounter Opened In Error 06/19/2022 Encounter Details Date Type Department Care Team (Late st Contact Info) Description 06/19/2022 Telephone [facility] Pediatrics - Diabetes Mgmt [facility] [place] [address] Grace Moss DO [address] [place] [address] Encounter Opened In Error Social History Tobacco Use Types Packs/Day Years Used Date Smoking Tobacco: Never Smokeless Tobacco: Never Alcohol Use Standard Drinks/Week Comments No 0 (1 standard drink = 0.6 oz pur e alcohol) Sex and Gender Information Value Date Recorded Sex Assigned at Male 11/11/2024 3:41 PM PLC TECHNICIAN Gender Identity Male 11/11/2024 3:41 PM PLC TECHNICIAN Sexual Orientation Straight 11/11/2024 3: 41 PM PLC TECHNICIAN documented as of this encounter Functional [...] No 06/16/2022 documented as of this encounter Plan of Treatment Upcoming Encounters Date Type Department Care Team (Late st Contact Info) Description 02/01/2025 9:30 AM CDT Office Visit [facility] - Internal Med [address] [facility] [place] [address] Raj Ladd MD [address] [place] [phone] documented as of this encounter Visit Diagnoses Not on filedocumented in this encounter Additional Health Concerns Infection Onset Date Last Indicated Resolved Time COVID-19 Under Investigation 09/23/2022 09/24/2022 09/24/2022 1:36 AM PLC TECHNICIAN COVID-19 Under Investigation 07/28/2023 07/28/2023 07/28/2023 9:35 PM CDT documented as of this encounter Care Teams Assistant Maintenance Manager Relationship Specialty Start Date End Date Erickson Nichole Jr., PCP - General Pediatrics 09/15/16 Michell Saenz RN Shoe Parts MolderMattress Specialist 08/02/23 08/06/23 Michell Saenz RN Shoe Parts MolderMattress Specialist 07/06/24 07/10/24 documented as of this encounter
--- OUTSIDE RECORDS SUMMARY | 2024-11-19 05:27 | XMS_ITS | Encounter Summary ---
Author Organization [facility] Address [address] [facility] [place] [address] Care Team Providers Care Ship Harbor Pilot Name Role Phone Dayanara Perea DO, Santiago B Primary Care Provider Reason for Visit * Reason Onset Date Comments MEDICATION REFILL 11/13/2024 Encounter Details Date Type Department Care Team (Late st Contact Info) Description 11/13/2024 Refill [facility] - Endocrinology [address] [place] [phone] Laura Rivas APRN-BARISTA [address] [facility] [place] [address] MEDICATION REFILL Social History Tobacco Use Types Packs/Day Years Used Date Smoking Tobacco: Never Passive Smoke Exposure: Never Smokeless Tobacco: Never Alcohol Use Standard [...] Recorded Patient Health Questionnaire-2 Score 0 11/26/2022 [facility] Occupat ional [facility] - Occupational Stress Questionnaire Answer Date Recorded [...] place to sleep or slept in a group home (including now)? No 07/03/2024 Sex and Gender Information Value Date Recorded Sex Assigned at Male 11/11/2024 3:41 PM BODY PRESS OPERATOR Gender Identity Male 11/11/2024 3:41 PM BODY PRESS OPERATOR Sexual Orientation Straight 11/11/2024 3: 41 PM BODY PRESS OPERATOR documented as of this encounter Functional [...] person have difficulty concentrating/remembering/making decisions? No 07/03/2024 documented as of this encounter Plan of Treatment Upcoming Encounters Date Type Department Care Team (Late st Contact Info) Description 02/01/2025 9:30 AM CDT Office Visit [facility] - [facility] Med [address] [facility] [place] [address] Raj Ladd MD [address] [place] [phone] documented as of this encounter Goals Goal Patient Goal Type Associated Problems Recent Progress Patient-Stated? Author Use safety retraint in car Lifestyle On track( 023 12:25 PM BODY PRESS OPERATOR) No Libby Shipley documented as of this encounter Visit Diagnoses Diagnosis Type 1 diabetes mellitus without complication (HCC) Type I (juvenile type) diabetes mellitus without mention of complication, not stated as uncontrolled documented in this encounter Care Teams Ship Harbor Pilot Relationship Specialty Start Date End Date Erickson Nichole Jr., DO PCP - General Pediatrics 09/15/16 documented as of this encounter
--- OUTSIDE RECORDS SUMMARY | 2024-11-19 05:27 | XMS_ITS | Encounter Summary ---
Author Organization [facility] Address [address] [facility] [place] [address] Care Team Providers Care Arc Welder Name Role Phone Dayanara Perea DO, Santiago B Primary Care Provider Michell Saenz RN Unavailable Reason for Visit * Reason Onset Date Comments MEDICATION REFILL 01/26/2024 Encounter Details Date Type Department Care Team (Late st Contact Info) Description 01/26/2024 Refill [facility] Pediatrics - Diabetes [facility] [address] [place] [address] Cari Myles, SWIMMING POOL MAINTENANCE SUPERVISOR-OFFICE NURSE PRACTITIONER [address] [place] [address] MEDICATION REFILL Social History Tobacco Use Types Packs/Day Years Used Date Smoking Tobacco: Never Passive Smoke Exposure: Never Smokeless Tobacco: Never Alcohol Use Standard Drinks/Week Comments No 0 (1 standard drink = 0.6 oz pur e alcohol) AUDIT-C Answer Date Recorded Q1: How often do you have a drink containing alc ohol? Never 03/26/2023 Average Number of Drinks Not on file 023 Frequency of Binge Drinking Not on file 06/2023 Overall Financial Resource Strain (CARDIA) Answe r Date Recorded How hard is it for you to pa y for the very basics like food, housing, medical care, and heating? Not hard at all 07/29/2023 PHQ-2 Answer Date Recorded Patient Health Questionnaire-2 Score 0 11/26/2022 [facility] of Occupat ional Health - Occupational Stress Questionnaire Answer Date Recorded Do you feel stress - tense, restless, nervous, or anxious, or unable to sleep at night because your mind is troubled all the time - these days? Not at all 07/29/2023 Hunger Vital Sign Answer Date Recorded Within the past 12 months, y ou worried that your food would run out before you got the money to buy more. Never true 07/29/20 23 Within the past 12 months, t he food you bought just didn't last and you didn't have money to get more. Never true 07/29/2023 PRAPARE - Transportation Answer Date Re corded In the past 12 months, has l ack of transportation kept you from medical appointments or from getting medications? No 07/18 In the past 12 months, has l ack of transportation kept you from meetings, work, or from getting things needed for daily living? No 07/29/2023 Housing Stability Vital Sign Answer Pablo e Recorded In the last 12 months, was t here a time when you were not able to pay the mortgage or rent on time? No 07/29/2023 In the last 12 months, how many places have you lived? 2 07/29/2023 In the last 12 months, was t here a time when you did not have a steady place to sleep or slept in a [facility] (including now)? No 07/29/2023 Sex and Gender Information Value Date Recorded Sex Assigned at Male 11/11/2024 3:41 PM CLASSROOM AIDE Gender Identity Male 11/11/2024 3:41 PM CLASSROOM AIDE Sexual Orientation Straight 11/11/2024 3: 41 PM CLASSROOM AIDE documented as of this encounter Functional Status Functional Status Response Date of Assess ment Is person deaf or have serious hearing difficult y? No 07/28/2023 Is person blind or have serious difficulty seein g? No 07/28/2023 Does person have serious dif ficulty walking/climbing stairs? No 07/28/2023 Does person have difficulty dressing/bathing? No 07/28/2023 Does person have difficulty doing errands alone? No 07/28/2023 Cognitive Status Response Date of Assessm ent Does person have difficulty concentrating/remembering/making decisions? No 07/28/2023 documented as of this encounter Plan of Treatment Upcoming Encounters Date Type Department Care Team (Late st Contact Info) Description 02/01/2025 9:30 AM CDT Office Visit [facility] - [facility] Med [address] [facility] [place] [address] Raj Ladd MD [address] [place] [address] documented as of this encounter Goals Goal Patient Goal Type Associated Problems Recent Progress Patient-Stated? Author Use safety retraint in car Lifestyle On track( 023 12:25 PM CLASSROOM AIDE) No Libby Shipley documented as of this encounter Visit Diagnoses Diagnosis Type 1 diabetes mellitus without complication (HCC)- Primary Type I (juvenile type) diabetes mellitus without mention of complication, not stated as uncontrolled documented in this encounter Care Teams Arc Welder Relationship Specialty Start Date End Date Erickson Nichole Jr., PCP - General Pediatrics 09/15/16 Michell Saenz, YAMILETH Acid Crane OperatorUnit Manager Rn 07/06/24 07/10/24 documented as of this encounter
--- OUTSIDE RECORDS SUMMARY | 2024-11-19 05:27 | XMS_ITS | Encounter Summary ---
Author Organization [facility] Address [address] [place] [address] Care Team Providers Care Pmo Lead Name Role Phone Dayanara Perea DO, Santiago B Primary Care Provider Michell Saenz RN Unavailable Michell Saenz RN Unavailable Reason for Visit * Reason Onset Date Comments Blood Sugar Problem 09/22/2016 Encounter Details Date Type Department Care Team (Late st Contact Info) Description 09/22/2016 Telephone [facility] Pediatrics - Endocrinology [address] [place] [address] Alejandro Broderick, MAINTENANCE CUSTODIAN-SPECIAL SYSTEMS TECHNICIAN [address] [place] [address] Blood Sugar Problem Social History Tobacco Use Types Packs/Day Years Used Date Smoking Tobacco: Never Smokeless Tobacco: Never Alcohol Use Standard Drinks/Week Comments No 0 (1 standard drink = 0.6 oz pur e alcohol) Sex and Gender Information Value Date Recorded Sex Assigned at Male 11/11/2024 3:41 PM STRIPPER COLOR Gender Identity Male 11/11/2024 3:41 PM STRIPPER COLOR Sexual Orientation Straight 11/11/2024 3: 41 PM STRIPPER COLOR documented as of this encounter Functional Status [...] No 09/18/2016 documented as of this encounter Miscellaneous Notes * Telephone Encounter - Stacey Reid RN - 10/01/2016 4:16 PM CST I called family to offer to review blood sugars. See doc flowsheets. Recommendations per injection protocol: Decrease all meals to 1:9 Reminded of clinic visit tomorrow. Mother states no need to send letter to school. She communicates needs to school. PPER COLOR * Telephone Encounter - Kavita Mcmahan RN - 09/30/2016 4:18 PM STRIPPER COLOR Called mother to review bgs, see doc flowsheet No changes per injection protocol Mother to call tomorrow for review. PPER COLOR * Telephone Encounter - Kavita Mcmahan RN - 09/29/2016 3:32 PM STRIPPER COLOR Mother called to review bgs, see doc flow sheet Plan per injection protocol: Increase Lantus to 20 units. Call tomorrow. She agreed. PPER COLOR * Telephone Encounter - Stacey Reid RN - 09/28/2016 4:00 PM CST I returned call from father to review blood sugars. See doc flowsheets. Had lows the past 2 evenings requiring treatment. Recommendations per injection protocol: Decrease dinner to 1:8 To check during the night tonight. To call tomorrow to review blood sugars. PPER COLOR * Telephone Encounter - Stacey Reid RN - 09/24/2016 3:37 PM CST Mother called and left message with blood sugars on voicemail. See doc flowsheets. Recommendations per injection protocol: No changes at this time. To call again tomorrow to review blood sugars. Mother states she wants next refill on insulin and supplies to be 90 day refill since copay is the same. Asked if she needs it to go to a mail order or to different pharmacy and will be glad to send 90 day. She will let office know tomorrow after speaking with insurance. PPER COLOR * Telephone Encounter - Kavita Mcmahan RN - 09/23/2016 12:16 PM STRIPPER COLOR Called mother to review bgs. See doc flowsheet. No changes. Notified mother of insurance requiring change to Novolog. Mother will need to use Novopen Echo for administration. She plans to garbage pick up man devices at on 09/24. Verbally reviewed use of pen with mother. She recalled use in training. Asked mother to call when she arrived tomorrow and diabetes nurse would review use with her. She agreed. PPER COLOR * Telephone Encounter - Zeb Lucero RN - 09/22/2016 4:15 PM CST I returned mom's call, see doc flow sheet. PLAN per injection protocol: No changes, Dr Luz just increased the Lantus to 17 units and changed the carb ratio to 1:7 last evening. Call tomorrow. Mom agreed. PPER COLOR documented in this encounter Plan of Treatment Upcoming Encounters Date Type Department Care Team (Late st Contact Info) Description 02/01/2025 9:30 AM CDT Office Visit [facility] - Internal Med [address] [facility] [place] [address] Raj Ladd MD [address] [place] [phone] documented as of this encounter Visit Diagnoses Not on filedocumented in this encounter Additional Health Concerns Infection Onset Date Last Indicated Resolved Time COVID-19 Under Investigation 09/23/2022 09/24/2022 09/24/2022 1:36 AM STRIPPER COLOR COVID-19 Under Investigation 07/28/2023 07/28/2023 07/28/2023 9:35 PM CDT documented as of this encounter Care Teams Pmo Lead Relationship Specialty Start Date End Date Erickson Nichole Jr., PCP - General Pediatrics 09/15/16 Michell Saenz, RN Local Area Network AdministratorPersonal Caregiver 08/02/23 08/06/23 Michell Saenz RN Local Area Network AdministratorPersonal Caregiver 07/06/24 07/10/24 documented as of this encounter
--- OUTSIDE RECORDS SUMMARY | 2024-11-19 05:27 | XMS_ITS | Encounter Summary ---
Author Organization [facility] Address [address] [place] [address] Care Team Providers Care Activities Officer Name Role Phone Dayanara Perea DO, Santiago B Primary Care Provider Michell Saenz RN Unavailable Encounter Details Date Type Department Care Team (Late st Contact Info) Description 01/26/2024 Telephone [facility] Pediatrics - Diabetes Mgmt [address] [facility] [place] [address] Cari Myles, KEYBOARD INSTRUMENT TUNER-VALLEZ FILTER OPERATOR [address] [place] [phone] Social History Tobacco Use Types Packs/Day Years [...] Recorded Patient Health Questionnaire-2 Score 0 11/26/2022 [facility] [place] of Occupat ional Health - Occupational Stress [...] place to sleep or slept in a longterm (including now)? No 07/29/2023 Sex and Gender Information Value Date Recorded Sex Assigned at Male 11/11/2024 3:41 PM AIRCRAFT SALES REPRESENTATIVE Gender Identity Male 11/11/2024 3:41 PM AIRCRAFT SALES REPRESENTATIVE Sexual Orientation Straight 11/11/2024 3: 41 PM AIRCRAFT SALES REPRESENTATIVE documented as of this encounter Functional Status [...] No 07/28/2023 documented as of this encounter Miscellaneous Notes * Telephone Encounter - Obed Mukherjee - 01/26/2024 11:06 AM CDT Diabetes Sick Call Patient: Alejandro Ca Date: 01/26/2024 Current Blood Glucose: 421 going down Current Ketone result: small-moderate Last insulin given: Lantus: Dose 28 Time 1000 Symptoms: nausea and vomiting Recent Illness: None Plan: Give 9 units now with syringe. Push sugar free fluid. Recheck blood glucose and urine ketones in two hours. Miscellaneous: Pod fell off overnight and Alejandro did not tell mom he needed refills. Refills sent to [facility] to sign along with Luis. documented in this encounter Plan of Treatment Upcoming Encounters Date Type Department Care Team (Late st Contact Info) Description 02/01/2025 9:30 AM CDT Office Visit [facility] - Internal Med [address] [facility], [facility] [place] [phone] Raj Ladd MD [address] [place] [phone] documented as of this encounter Goals Goal Patient Goal Type Associated Problems Recent Progress Patient-Stated? Author Use safety retraint in car Lifestyle On track( 023 12:25 PM AIRCRAFT SALES REPRESENTATIVE) No Libby Shipley documented as of this encounter Visit Diagnoses Not on filedocumented in this encounter Care Teams Activities Officer Relationship Specialty Start Date End Date Erickson Nichole Jr., DO PCP - General Pediatrics 09/15/16 Michell Saenz, RN Financial AuditorHorticultural Therapist 07/06/24 07/10/24 documented as of this encounter
--- OUTSIDE RECORDS SUMMARY | 2024-11-19 05:27 | XMS_ITS | Encounter Summary ---
Author Organization [facility] Address [address] [place] [address] Care Team Providers Care Product Support Representative Name Role Phone Dayanara Perea DO, Santiago B Primary Care Provider Michell Saenz RN Unavailable Michell Saenz RN Unavailable Encounter Details Date Type Department Care Team (Late st Contact Info) Description 07/07/2019 Telephone [facility] Pediatrics - Diabetes [address] [address] Alejandro Broderick, CLINICAL LABORATORY AIDES TEACHER-THREAD SEPARATOR [address] [place] [address] Social History Tobacco Use Types Packs/Day Years Used Date Smoking Tobacco: Never Smokeless Tobacco: Never Alcohol Use Standard Drinks/Week Comments No 0 (1 standard drink = 0.6 oz pur e alcohol) Sex and Gender Information Value Date Recorded Sex Assigned at Male 11/11/2024 3:41 PM REGISTER IN CHANCERY Gender Identity Male 11/11/2024 3:41 PM REGISTER IN CHANCERY Sexual Orientation Straight 11/11/2024 3: 41 PM REGISTER IN CHANCERY documented as of this encounter Functional Status [...] encounter Miscellaneous Notes * Telephone Encounter - Tete Smith RN - 07/07/2019 9:46 AM CDT Images from the original note were not included. Mom called to review BG's. See Dexcom screen shot below. Mom did not answer, LMOM. My recommendations would be to increase his breakfast I:C to 1:4 documented in this encounter Plan of Treatment Upcoming Encounters Date Type Department Care Team (Late st Contact Info) Description 02/01/2025 9:30 AM CDT Office Visit [facility] Physician Group - Internal Med [address] [facility] [place] [phone] Raj Ladd MD [address] [place] [phone] documented as of this encounter Visit Diagnoses Not on filedocumented in this encounter Additional Health Concerns Infection Onset Date Last Indicated Resolved Time COVID-19 Under Investigation 09/23/2022 09/24/2022 09/24/2022 1:36 AM REGISTER IN CHANCERY COVID-19 Under Investigation 07/28/2023 07/28/2023 07/28/2023 9:35 PM CDT documented as of this encounter Care Teams Product Support Representative Relationship Specialty Start Date End Date Erickson Nichole Jr., DO PCP - General Pediatrics 09/15/16 Michell Saenz, YAMILETH Golf Course ManagerLoading Manager 08/02/23 08/06/23 Michell Saenz, RN Golf Course ManagerLoading Manager 07/06/24 07/10/24 documented as of this encounter
--- OUTSIDE RECORDS SUMMARY | 2024-11-19 05:27 | XMS_ITS | Encounter Summary ---
Author Organization [facility] Address [address] [place] [address] Care Team Providers Care Cook Ship Name Role Phone Dayanara Perea DO, Santiago B Primary Care Provider Michell Saenz RN Unavailable Michell Saenz RN Unavailable Reason for Visit * Reason Onset Date Comments MEDICATION REFILL 10/22/2016 Encounter Details Date Type Department Care Team (Late st Contact Info) Description 10/22/2016 Refill [facility] Pediatrics - Endocrinology [address] [place] [address] Farooq Bradshaw MD [address] [place] [address] MEDICATION REFILL Social History Tobacco Use Types Packs/Day Years Used Date Smoking Tobacco: Never Smokeless Tobacco: Never Alcohol Use Standard Drinks/Week Comments No 0 (1 standard drink = 0.6 oz pur e alcohol) Sex and Gender Information Value Date Recorded Sex Assigned at Male 11/11/2024 3:41 PM DOWEL INSPECTOR Gender Identity Male 11/11/2024 3:41 PM DOWEL INSPECTOR Sexual Orientation Straight 11/11/2024 3: 41 PM DOWEL INSPECTOR documented as of this encounter Functional Status [...] encounter Miscellaneous Notes * Telephone Encounter - Zeb Lucero RN - 10/22/2016 3:09 PM CST Mom called, reports insurance will not cover Lantus, only Tresiba. Per Dr Lacey and Dr Bradshaw, okto order Tresiba at the same dose as Lantus (20 units per mom), will route to Dr Bradshaw. I explained to mom to hold pen 10 seconds (they prefer pen and I don't show that it is available in a vial),check bg at 0200 the next 3 nights. Call for patterns in blood sugars. As with any new medication, w [facility] for symptoms of medication allergies. L INSPECTOR documented in this encounter Plan of Treatment Upcoming Encounters Date Type Department Care Team (Late st Contact Info) Description 02/01/2025 9:30 AM CDT Office Visit [facility] Physician Group - Internal Med [address] [facility] [place] [phone] Raj Ladd MD [address] [place] [address] documented as of this encounter Visit Diagnoses Not on filedocumented in this encounter Additional Health Concerns Infection Onset Date Last Indicated Resolved Time COVID-19 Under Investigation 09/23/2022 09/24/2022 09/24/2022 1:36 AM DOWEL INSPECTOR COVID-19 Under Investigation 07/28/2023 07/28/2023 07/28/2023 9:35 PM CDT documented as of this encounter Care Teams Cook Ship Relationship Specialty Start Date End Date Erickson Nichole Jr., PCP - General Pediatrics 09/15/16 Michell Saenz RN Mr TeacherTransformer Builder 08/02/23 08/06/23 Michell Saenz RN Mr TeacherTransformer Builder 07/06/24 07/10/24 documented as of this encounter
--- OUTSIDE RECORDS SUMMARY | 2024-11-19 05:27 | XMS_ITS | Encounter Summary ---
Author Organization [facility] Address [address] [place] [address] Care Team Providers Care Compound Filler Name Role Phone Dayanara Perea DO, Santiago B Primary Care Provider Encounter Details Date Type Department Care Team (Late st Contact Info) Description 11/15/2024 Telephone [facility] - Centralized Scheduling [address] [place] [phone] Laura Rivas APRN-SWITCHBOARD AND CONTROL ROOM OPERATOR [address] [facility] [place] [phone] Social History Tobacco Use Types Packs/Day Years [...] Recorded Patient Health Questionnaire-2 Score 0 11/26/2022 [facility] [place] of Occupat ional Health - Occupational Stress [...] place to sleep or slept in a long term (including now)? No 07/03/2024 Sex and Gender Information Value Date Recorded Sex Assigned at Male 11/11/2024 3:41 PM SPECIAL DUTY NURSE Gender Identity Male 11/11/2024 3:41 PM SPECIAL DUTY NURSE Sexual Orientation Straight 11/11/2024 3: 41 PM SPECIAL DUTY NURSE documented as of this encounter Functional Status [...] Description 02/01/2025 9:30 AM CDT Office Visit [facility] Physician Group - Internal Med [address] [facility] [facility] [place] [address] Raj Ladd MD [address] [place] [phone] documented as of this encounter Goals Goal Patient Goal Type Associated Problems Recent Progress Patient-Stated? Author Use safety retraint in car Lifestyle On track( 023 12:25 PM SPECIAL DUTY NURSE) No Libby Shipley documented as of this encounter Visit Diagnoses Not on filedocumented in this encounter Care Teams Compound Filler Relationship Specialty Start Date End Date Erickson Nichole Jr., PCP - General Pediatrics 09/15/16 documented as of this encounter
--- OUTSIDE RECORDS SUMMARY | 2024-11-19 05:27 | XMS_ITS | Encounter Summary ---
Author Organization [facility] Address [address] [place] [address] Care Team Providers Care Checkering Machine Adjuster Name Role Phone Dayanara Perea DO, Santiago B Primary Care Provider Michell Saenz RN Unavailable Reason for Visit * Reason Onset Date Comments Blood Glucose (Sugar) Review 07/07/2024 Encounter Details Date Type Department Care Team (Late st Contact Info) Description 07/07/2024 Telephone [facility] Pediatrics - Diabetes [address] [address] Liane Carroll MD [address] [place] [address] Blood Glucose (Sugar) Review Social History Tobacco Use Types Packs/Day Years [...] Recorded Patient Health Questionnaire-2 Score 0 11/26/2022 [facility] of Occupat ional Health - Occupational Stress [...] place to sleep or slept in a penitentiary (including now)? No 07/03/2024 Sex and Gender Information Value Date Recorded Sex Assigned at Male 11/11/2024 3:41 PM ANALYTICS LEADER Gender Identity Male 11/11/2024 3:41 PM ANALYTICS LEADER Sexual Orientation Straight 11/11/2024 3: 41 PM ANALYTICS LEADER documented as of this encounter Functional Status [...] No 07/03/2024 documented as of this encounter Miscellaneous Notes * Telephone Encounter - Staci Xiao RN - 09/27/2024 3:21 PM CST Received a call from Wendi that the pharmacy is having issues filling some of his prescriptions. Placed a call back to wendi but was sent to and left a message. YTICS LEADER * Telephone Encounter - Staci Xiao RN - 07/07/2024 12:01 PM CDT Faxed PA for Omnipod to [facility] * Telephone Encounter - Lashae Warren RN - 07/07/2024 11:14 AM CDT Images from the original note were not included. Wendi called to review bgs. See Dexcom. Per protocol, no changes made. I asked for him to call Wednesday for further review. Current doses: B 1:5 L 1:5 D 1:5 Correction 2:50>150 Lantus: 25 units documented in this encounter Plan of Treatment Upcoming Encounters Date Type Department Care Team (Late st Contact Info) Description 02/01/2025 9:30 AM CDT Office Visit [facility] - Internal Med [address] [facility] [place] [address] Raj Ladd MD [address] [place] [phone] documented as of this encounter Goals Goal Patient Goal Type Associated Problems Recent Progress Patient-Stated? Author Use safety retraint in car Lifestyle On track( 023 12:25 PM ANALYTICS LEADER) No Libby Shipley documented as of this encounter Visit Diagnoses Not on filedocumented in this encounter Care Teams Checkering Machine Adjuster Relationship Specialty Start Date End Date Erickson Nichole Jr., PCP - General Pediatrics 09/15/16 Michell Saenz, RN Inspector Experimental AssemblyPerioperative Manager 07/06/24 07/10/24 documented as of this encounter
--- OUTSIDE RECORDS SUMMARY | 2024-11-19 05:27 | XMS_ITS | Encounter Summary ---
Author Organization [facility] Address [address] [place] [address] Care Team Providers Care Automatic I Threading Machine Feeder Name Role Phone Dayanara Perea DO, Santiago B Primary Care Provider Reason for Visit * Reason Onset Date Comments MEDICATION REFILL 11/13/2024 Encounter Details Date Type Department Care Team (Late st Contact Info) Description 11/13/2024 Refill [facility] Pediatrics - Diabetes Mgmt [address] [place] [address] Nina Mueller DO [address] [place] [phone] MEDICATION REFILL Social History Tobacco Use Types [...] Recorded Patient Health Questionnaire-2 Score 0 11/26/2022 [facility] [place] of Occupat ional Health - Occupational Stress [...] place to sleep or slept in a snf (including now)? No 07/03/2024 Sex and Gender Information Value Date Recorded Sex Assigned at Male 11/11/2024 3:41 PM FIRE EXTINGUISHER CHARGER Gender Identity Male 11/11/2024 3:41 PM FIRE EXTINGUISHER CHARGER Sexual Orientation Straight 11/11/2024 3: 41 PM FIRE EXTINGUISHER CHARGER documented as of this encounter Functional Status [...] Telephone Encounter - Stacey Reid RN - 11/14/2024 7:03 AM CST No longer our patient. EXTINGUISHER CHARGER documented in this encounter Plan of Treatment Upcoming Encounters Date Type Department Care Team (Late st Contact Info) Description 02/01/2025 9:30 AM CDT Office Visit [facility] - Internal Med [address] [facility] [place] [address] Raj Ladd MD [address] [place] [phone] documented as of this encounter Goals Goal Patient Goal Type Associated Problems Recent Progress Patient-Stated? Author Use safety retraint in car Lifestyle On track( 023 12:25 PM FIRE EXTINGUISHER CHARGER) No Libby Shipley documented as of this encounter Visit Diagnoses Not on filedocumented in this encounter Care Teams Automatic I Threading Machine Feeder Relationship Specialty Start Date End Date Erickson Nichole Jr., PCP - General Pediatrics 09/15/16 documented as of this encounter
--- OUTSIDE RECORDS SUMMARY | 2024-11-19 05:27 | XMS_ITS | Encounter Summary ---
Author Organization [facility] Address [address] [place] [address] Care Team Providers Care Obstetrics Gynecology Md Name Role Phone Dayanara Perea DO, Santiago B Primary Care Provider Michell Saenz RN Unavailable Michell Saenz RN Unavailable Reason for Visit * Reason Onset Date Comments Blood Sugar Problem 11/07/2019 Encounter Details Date Type Department Care Team (Late st Contact Info) Description 11/07/2019 Telephone [facility] Pediatrics - Diabetes [facility] [address] [place] [address] Alejandro Broderick, CLOTH TESTER-HEALTH INFORMATION TECHNICIAN [address] [place] [address] Blood Sugar Problem Social History Tobacco Use Types Packs/Day Years Used Date Smoking Tobacco: Never Smokeless Tobacco: Never Alcohol Use Standard Drinks/Week Comments No 0 (1 standard drink = 0.6 oz pur e alcohol) Sex and Gender Information Value Date Recorded Sex Assigned at Male 11/11/2024 3:41 PM EMPLOYEE RELATIONS ADMINISTRATOR Gender Identity Male 11/11/2024 3:41 PM EMPLOYEE RELATIONS ADMINISTRATOR Sexual Orientation Straight 11/11/2024 3: 41 PM EMPLOYEE RELATIONS ADMINISTRATOR documented as of this encounter Functional [...] No 10/16/2019 documented as of this encounter Miscellaneous Notes * Telephone Encounter - Zeb Lucero, RN - 11/07/2019 11:01 AM CST Images from the original note were not included. I returned mom's call for Dexcom review. Pt hasn't been to school since last due to weather/holiday. Bgs are extremely high, especially in the afternoon evening. PLAN: Log all carb amounts and insulin dosing for the next 3 days. Call me Wednesday morning for comparison of that to Dexcom. Explained that diligent accurate carb count is needed, mom agreed. Will wait for her call Wednesday. OYEE RELATIONS ADMINISTRATOR documented in this encounter Plan of Treatment Upcoming Encounters Date Type Department Care Team (Late st Contact Info) Description 02/01/2025 9:30 AM CDT Office Visit [facility] Group - Internal Med [address] [facility] [place] [phone] Raj Ladd MD [address] [place] [phone] documented as of this encounter Visit Diagnoses Not on filedocumented in this encounter Additional Health Concerns Infection Onset Date Last Indicated Resolved Time COVID-19 Under Investigation 09/23/2022 09/24/2022 09/24/2022 1:36 AM EMPLOYEE RELATIONS ADMINISTRATOR COVID-19 Under Investigation 07/28/2023 07/28/2023 07/28/2023 9:35 PM CDT documented as of this encounter Care Teams Obstetrics Gynecology Md Relationship Specialty Start Date End Date Erickson Nichole Jr., PCP - General Pediatrics 09/15/16 Michell Saenz, RN Boilermaker ShipSupply Person 08/02/23 08/06/23 Michell Saenz RN Boilermaker ShipSupply Person 07/06/24 07/10/24 documented as of this encounter
--- OUTSIDE RECORDS SUMMARY | 2024-11-19 05:27 | XMS_ITS | Encounter Summary ---
Author Organization [facility] Address [address] [place] [address] Care Team Providers Care Engineer Rf Deployment Name Role Phone Dayanara Perea DO, Santiago B Primary Care Provider Michell Saenz RN Unavailable Michell Saenz RN Unavailable Encounter Details Date Type Department Care Team (Late st Contact Info) Description 08/07/[address] [facility] Pediatrics - Diabetes [address] [address] Alejandro Broderick, WELDING EQUIPMENT REPAIRER SUPERVISOR-ROAD GRADER [address] [place] [address] Social History Tobacco Use Types Packs/Day Years Used Date Smoking Tobacco: Never Smokeless Tobacco: Never Alcohol Use Standard Drinks/Week Comments No 0 (1 standard drink = 0.6 oz pur e alcohol) Sex and Gender Information Value Date Recorded Sex Assigned at Male 11/11/2024 3:41 PM CENTRIFUGAL SUPERVISOR Gender Identity Male 11/11/2024 3:41 PM CENTRIFUGAL SUPERVISOR Sexual Orientation Straight 11/11/2024 3: 41 PM CENTRIFUGAL SUPERVISOR documented as of this encounter Functional Status [...] Miscellaneous Notes * Telephone Encounter - Tete Smith, RN - 08/07/2019 11:57 AM CDT Images from the original note were not included. I spoke with Alejandro Ca's mom ([phone]) who called to report blood glucose logs. Please see dexcom screen shots below. Per Dr. Moss's recommendations I have changed his lunch I:C to 1:4 and dinner to 1:6. I told them to call back for further review on Wednesday. Current doses(after changes today): Lantus 33 units Novolog: Breakfast: 1:4 Lunch: 1:4 Dinner: 1:6 Correction 250>150 documented in this encounter Plan of Treatment Upcoming Encounters Date Type Department Care Team (Late st Contact Info) Description 02/01/2025 9:30 AM CDT Office Visit [facility] - Internal Med [address] [facility] [place] [phone] Raj Ladd MD [address] [place] [address] documented as of this encounter Visit Diagnoses Not on filedocumented in this encounter Additional Health Concerns Infection Onset Date Last Indicated Resolved Time COVID-19 Under Investigation 09/23/2022 09/24/2022 09/24/2022 1:36 AM CENTRIFUGAL SUPERVISOR COVID-19 Under Investigation 07/28/2023 07/28/2023 07/28/2023 9:35 PM CDT documented as of this encounter Care Teams Engineer Rf Deployment Relationship Specialty Start Date End Date Erickson Nichole Jr., PCP - General Pediatrics 09/15/16 Michell Saenz RN Tubing Mill SetterLay Midwife 08/02/23 08/06/23 Michell Saenz RN Tubing Mill SetterLay Midwife 07/06/24 07/10/24 documented as of this encounter
--- OUTSIDE RECORDS SUMMARY | 2024-11-19 05:27 | XMS_ITS | Encounter Summary ---
Author Organization [facility] Address [address] [place] [address] Care Team Providers Care Water Service Supervisor Name Role Phone Dayanara Perea DO, Santiago B Primary Care Provider Michell Saenz RN Unavailable Michell Saenz RN Unavailable Encounter Details Date Type Department Care Team (Late st Contact Info) Description 08/14/2019 Telephone [facility] Pediatrics - Diabetes [address] [address] Alejandro Broderick, PREMISES TECHNICIAN-JUNIOR ACCOUNTANT BOOKKEEPER [address] [place] [address] Social History Tobacco Use Types Packs/Day Years Used Date Smoking Tobacco: Never Smokeless Tobacco: Never Alcohol Use Standard Drinks/Week Comments No 0 (1 standard drink = 0.6 oz pur e alcohol) Sex and Gender Information Value Date Recorded Sex Assigned at Male 11/11/2024 3:41 PM HANDLE SANDER OPERATOR Gender Identity Male 11/11/2024 3:41 PM HANDLE SANDER OPERATOR Sexual Orientation Straight 11/11/2024 3: 41 PM HANDLE SANDER OPERATOR documented as of this encounter Functional [...] Telephone Encounter - Tete Smith RN - 08/14/2019 2:50 PM CDT Images from the original note were not included. I returned a call regarding Alejandro Ca. Mom-- Lupe, did not answer, LMOM with the following recommendations. Please see dexcom screen shots. Per protocol I have increased his Lantus by 20% to 39 units. I told them to call back for further review on Wednesday. documented in this encounter Plan of Treatment Upcoming Encounters Date Type Department Care Team (Late st Contact Info) Description 02/01/2025 9:30 AM CDT Office Visit [facility] - Internal Med [facility] [facility] [place] [address] Raj Ladd MD [address] [place] [phone] documented as of this encounter Visit Diagnoses Not on filedocumented in this encounter Additional Health Concerns Infection Onset Date Last Indicated Resolved Time COVID-19 Under Investigation 09/23/2022 09/24/2022 09/24/2022 1:36 AM HANDLE SANDER OPERATOR COVID-19 Under Investigation 07/28/2023 07/28/2023 07/28/2023 9:35 PM CDT documented as of this encounter Care Teams Water Service Supervisor Relationship Specialty Start Date End Date Erickson Nichole Jr., PCP - General Pediatrics 09/15/16 Michell Saenz RN Hose WrapperResident Services Supervisor 08/02/23 08/06/23 Michell Saenz RN Hose WrapperResident Services Supervisor 07/06/24 07/10/24 documented as of this encounter
--- OUTSIDE RECORDS SUMMARY | 2024-11-19 05:27 | XMS_ITS | Encounter Summary ---
Author Organization [facility] Address [address] [place] [address] Care Team Providers Care Gang Vibrator Operator Name Role Phone Dayanara Perea DO, Santiago B Primary Care Provider Michell Saenz RN Unavailable Reason for Visit * Reason Onset Date Comments MEDICATION REFILL 01/26/2024 Encounter Details Date Type Department Care Team (Late st Contact Info) Description 01/26/2024 Refill [facility] Pediatrics - Diabetes [facility] [address] [place] [address] Cari Myles, TECTONOPHYSICIST-CHARGE ACCOUNT CLERK [address] [place] [address] MEDICATION REFILL Social History Tobacco Use Types [...] Recorded Patient Health Questionnaire-2 Score 0 11/26/2022 [facility] of Occupat ional Health - Occupational Stress [...] place to sleep or slept in a nursing home (including now)? No 07/29/2023 Sex and Gender Information Value Date Recorded Sex Assigned at Male 11/11/2024 3:41 PM SUPERVISING ARCHITECT Gender Identity Male 11/11/2024 3:41 PM SUPERVISING ARCHITECT Sexual Orientation Straight 11/11/2024 3: 41 PM SUPERVISING ARCHITECT documented as of this encounter Functional Status [...] [facility] Med [address] [facility], [facility] [place] [address] Raj Ladd MD [address] [place] [address] documented as of this encounter Goals Goal Patient Goal Type Associated Problems Recent Progress Patient-Stated? Author Use safety retraint in car Lifestyle On track( 023 12:25 PM SUPERVISING ARCHITECT) No Libby Shipley documented as of this encounter Visit Diagnoses Diagnosis Type 1 diabetes mellitus without complication (HCC) Type I (juvenile type) diabetes mellitus without mention of complication, not stated as uncontrolled documented in this encounter Care Teams Gang Vibrator Operator Relationship Specialty Start Date End Date Erickson Nichole Jr., PCP - General Pediatrics 09/15/16 Michell Saenz, YAMILETH Mortgage Field InspectorSurveyor Hydrographic 07/06/24 07/10/24 documented as of this encounter
--- OUTSIDE RECORDS SUMMARY | 2024-11-19 05:27 | XMS_ITS | Encounter Summary ---
Author Organization [facility] Address [address] [place] [place] [address] Care Team Providers Care Roustabout Crew Pusher Name Role Phone Dayanara Perea DO, Santiago B Primary Care Provider Michell Saenz RN Unavailable Michell Saenz RN Unavailable Encounter Details Date Type Department Care Team (Late st Contact Info) Description 07/26/2020 Telephone [facility] Pediatrics - Endocrinology [address] [place] [address] Alejandro Broderick, LINUX KERNEL ENGINEER-OUTSIDE SALES MANAGER [address] [place] [address] Social History Tobacco Use Types Packs/Day Years Used Date Smoking Tobacco: Never Smokeless Tobacco: Never Alcohol Use Standard Drinks/Week Comments No 0 (1 standard drink = 0.6 oz pur e alcohol) Sex and Gender Information Value Date Recorded Sex Assigned at Male 11/11/2024 3:41 PM MERCHANDISE BUYER Gender Identity Male 11/11/2024 3:41 PM MERCHANDISE BUYER Sexual Orientation Straight 11/11/2024 3: 41 PM MERCHANDISE BUYER documented as of this encounter Functional Status [...] Telephone Encounter - Tete Smith, RN - 07/26/2020 4:35 PM CDT Mom called asking about Dexcom sensors and transmitter. I called the pharmacy that she left on [facility] [phone]. They stated that everything had gone through for both the sensors and the transmitter. I called mom back to notify her, no answer, LMOM. documented in this encounter Plan of Treatment Upcoming Encounters Date Type Department Care Team (Late st Contact Info) Description 02/01/2025 9:30 AM CDT Office Visit [facility] - Internal Med [address] [facility] [place] [address] Raj Ladd MD [address] [place] [phone] documented as of this encounter Visit Diagnoses Not on filedocumented in this encounter Additional Health Concerns Infection Onset Date Last Indicated Resolved Time COVID-19 Under Investigation 09/23/2022 09/24/2022 09/24/2022 1:36 AM MERCHANDISE BUYER COVID-19 Under Investigation 07/28/2023 07/28/2023 07/28/2023 9:35 PM CDT documented as of this encounter Care Teams Roustabout Crew Pusher Relationship Specialty Start Date End Date Erickson Nichole Jr., DO PCP - General Pediatrics 09/15/16 Michell Saenz RN Rotary Engine AssemblerFire Equipment Inspector Helper 08/02/23 08/06/23 Michell Saenz RN Rotary Engine AssemblerFire Equipment Inspector Helper 07/06/24 07/10/24 documented as of this encounter
--- OUTSIDE RECORDS SUMMARY | 2024-11-19 05:27 | XMS_ITS | Encounter Summary ---
Author Organization [facility] Address [address] [place] [address] Care Team Providers Care Die Repairer Trimmer Dies Name Role Phone Dayanara Perea DO, Santiago B Primary Care Provider Michell Saenz RN Unavailable Michell Saenz RN Unavailable Encounter Details Date Type Department Care Team (Late st Contact Info) Description 10/15/2020 Telephone [facility] Pediatrics - Diabetes [address] [id number] [place] [address] Alejandro Broderick, CYBER INCIDENT ANALYST-MAINTENANCE CUSTODIAN [address] [place] [address] Social History Tobacco Use Types Packs/Day Years Used Date Smoking Tobacco: Never Smokeless Tobacco: Never Alcohol Use Standard Drinks/Week Comments No 0 (1 standard drink = 0.6 oz pur e alcohol) Sex and Gender Information Value Date Recorded Sex Assigned at Male 11/11/2024 3:41 PM STOCK PULLER Gender Identity Male 11/11/2024 3:41 PM STOCK PULLER Sexual Orientation Straight 11/11/2024 3: 41 PM STOCK PULLER documented as of this encounter Functional Status [...] Description 02/01/2025 9:30 AM CDT Office Visit [facility] Group - Internal Med [address] [facility], [facility] [place] [phone] Raj Ladd MD [address] [place] [address] documented as of this encounter Visit Diagnoses Not on filedocumented in this encounter Additional Health Concerns Infection Onset Date Last Indicated Resolved Time COVID-19 Under Investigation 09/23/2022 09/24/2022 09/24/2022 1:36 AM STOCK PULLER COVID-19 Under Investigation 07/28/2023 07/28/2023 07/28/2023 9:35 PM CDT documented as of this encounter Care Teams Die Repairer Trimmer Dies Relationship Specialty Start Date End Date Erickson Nichole Jr., PCP - General Pediatrics 09/15/16 Michell Saenz RN Grooving Lathe TenderStock Handler 08/02/23 08/06/23 Michell Saenz RN Grooving Lathe TenderStock Handler 07/06/24 07/10/24 documented as of this encounter
--- OUTSIDE RECORDS SUMMARY | 2024-11-19 05:27 | XMS_ITS | Encounter Summary ---
Author Organization [facility] Address [address] [facility] [place] [address] Care Team Providers Care Websphere Message Broker Developer Name Role Phone Dayanara Perea DO, Santiago B Primary Care Provider Michell Saenz RN Unavailable Michell Saenz RN Unavailable Encounter Details Date Type Department Care Team (Late st Contact Info) Description 08/16/2018 Telephone [facility] Pediatrics - Diabetes [address] [address] Alejandro Broderick, SUPERVISOR PHOSPHORIC ACID-SUSTAINABLE LANDSCAPE ARCHITECT [address] [place] [address] Social History Tobacco Use Types Packs/Day Years Used Date Smoking Tobacco: Never Smokeless Tobacco: Never Alcohol Use Standard Drinks/Week Comments No 0 (1 standard drink = 0.6 oz pur e alcohol) Sex and Gender Information Value Date Recorded Sex Assigned at Male 11/11/2024 3:41 PM HEATER INSTALLER Gender Identity Male 11/11/2024 3:41 PM HEATER INSTALLER Sexual Orientation Straight 11/11/2024 3: 41 PM HEATER INSTALLER documented as of this encounter Functional Status [...] encounter Miscellaneous Notes * Telephone Encounter - Kavita Mcmahan, RN - 08/18/2018 12:48 PM CDT Mother called for blood sugar review. See dexcom report. Mother concerned that school is using 1:7 ratio. She was unaware of the change. Upon looking at notes, in June Alejandro was sick and dosing was changed to 1:7 during illness and correction factor changed to 1q30>150. Letter faxed to school matches those doses. Mother unaware of when she was doing 1:7. Mother stated that currently she is dosing 1:6 at home. (noted that even 1:6 on weekends lends to hyperglycemia per Dexcom report) Reviewed importance of parents being responsible for injections. She stated that she does injections at home. Letter updated with new dosing per injection protocol: Breakfast 1:5 Lunch 1:8 Dinner 1:6 Mother notified of dosing. Letter sent to school. Priscilla, health aide/office attendant aware. * Telephone Encounter - Zeb Lucero RN - 08/16/2018 3:24 PM CDT I returned mom's call for bg review. Left message to call us back. [phone] documented in this encounter Plan of Treatment Upcoming Encounters Date Type Department Care Team (Late st Contact Info) Description 02/01/2025 9:30 AM CDT Office Visit [facility] Group - Internal Med [address] [place] [address], [facility] [place] [phone] Raj Ladd MD [address] [place] [address] documented as of this encounter Visit Diagnoses Not on filedocumented in this encounter Additional Health Concerns Infection Onset Date Last Indicated Resolved Time COVID-19 Under Investigation 09/23/2022 09/24/2022 09/24/2022 1:36 AM HEATER INSTALLER COVID-19 Under Investigation 07/28/2023 07/28/2023 07/28/2023 9:35 PM CDT documented as of this encounter Care Teams Websphere Message Broker Developer Relationship Specialty Start Date End Date Erickson Nichole Jr., PCP - General Pediatrics 09/15/16 Michell Saenz RN Import Export CoordinatorWeb Content Director 08/02/23 08/06/23 Michell Saenz RN Import Export CoordinatorWeb Content Director 07/06/24 07/10/24 documented as of this encounter
--- OUTSIDE RECORDS SUMMARY | 2024-11-19 05:27 | XMS_ITS | Encounter Summary ---
Author Organization [facility] Address [address] [place] [address] Care Team Providers Care Centrifugal Casting Machine Operator Name Role Phone Dayanara Perea DO, Santiago B Primary Care Provider Reason for Visit * Reason Comments Refill Request Encounter Details Date Type Department Care Team (Late st Contact Info) Description 08/16/2024 Refill [facility] Pediatrics - Diabetes Mgmt [address] [place] [address] Nina Mueller DO [address] [place] [phone] Refill Request Social History Tobacco Use Types [...] Recorded Patient Health Questionnaire-2 Score 0 11/26/2022 [facility] of Occupat ional Health - Occupational Stress [...] slept in a [facility] (including now)? No 07/03/2024 Sex and Gender Information Value Date Recorded Sex Assigned at Male 11/11/2024 3:41 PM MASH PROCESSING OPERATOR Gender Identity Male 11/11/2024 3:41 PM MASH PROCESSING OPERATOR Sexual Orientation Straight 11/11/2024 3: 41 PM MASH PROCESSING OPERATOR documented as of this encounter Functional [...] Description 02/01/2025 9:30 AM CDT Office Visit [facility] - Internal Med [address] [facility] [place] [address] Raj Ladd MD [address] [place] [phone] documented as of this encounter Goals Goal Patient Goal Type Associated Problems Recent Progress Patient-Stated? Author Use safety retraint in car Lifestyle On track( 023 12:25 PM MASH PROCESSING OPERATOR) No Libby Shipley documented as of this encounter Visit Diagnoses Diagnosis Type 1 diabetes mellitus without complication (HCC) Type I (juvenile type) diabetes mellitus without mention of complication, not stated as uncontrolled documented in this encounter Care Teams Centrifugal Casting Machine Operator Relationship Specialty Start Date End Date Erickson Nichole Jr., PCP - General Pediatrics 09/15/16 documented as of this encounter
--- OUTSIDE RECORDS SUMMARY | 2024-11-19 05:27 | XMS_ITS | Encounter Summary ---
Author Organization [facility] Address [address] [place] [address] Care Team Providers Care Photocopier Technician Name Role Phone Dayanara Perea DO, Santiago B Primary Care Provider Michell Saenz RN Unavailable Michell Saenz RN Unavailable Reason for Visit * Reason Onset Date Comments Blood Sugar Problem 04/11/2020 Encounter Details Date Type Department Care Team (Late st Contact Info) Description 04/11/2020 Telephone [facility] Pediatrics - Diabetes [facility] [address] [place] [address] Alejandro Broderick, DORMITORY KEEPER-ZONE SUPERVISOR FIREARMS [address] [place] [address] Blood Sugar Problem Social History Tobacco Use Types Packs/Day Years Used Date Smoking Tobacco: Never Smokeless Tobacco: Never Alcohol Use Standard Drinks/Week Comments No 0 (1 standard drink = 0.6 oz pur e alcohol) Sex and Gender Information Value Date Recorded Sex Assigned at Male 11/11/2024 3:41 PM BLOOD BANK LABORATORY PROFESSIONAL Gender Identity Male 11/11/2024 3:41 PM BLOOD BANK LABORATORY PROFESSIONAL Sexual Orientation Straight 11/11/2024 3: 41 PM BLOOD BANK LABORATORY PROFESSIONAL documented as of this encounter Functional Status [...] Telephone Encounter - Zeb Lucero, RN - 04/11/2020 11:43 AM CDT Images from the original note were not included. I returned mom's call after reviewing bgs via Clarity. No answer, left message that spikes from range into 200-400's are most likely still from continued eating without dosing. Message left to call if she would like to discuss, however, would advise stressing supervision with dosing and also talking to Alejandro and encouraging him not to miss insulin. documented in this encounter Plan of Treatment Upcoming Encounters Date Type Department Care Team (Late st Contact Info) Description 02/01/2025 9:30 AM CDT Office Visit [facility]ician Group - Internal Med [address] [facility] [place] [phone] Raj Ladd MD [address] [place] [phone] documented as of this encounter Visit Diagnoses Not on filedocumented in this encounter Additional Health Concerns Infection Onset Date Last Indicated Resolved Time COVID-19 Under Investigation 09/23/2022 09/24/2022 09/24/2022 1:36 AM BLOOD BANK LABORATORY PROFESSIONAL COVID-19 Under Investigation 07/28/2023 07/28/2023 07/28/2023 9:35 PM CDT documented as of this encounter Care Teams Photocopier Technician Relationship Specialty Start Date End Date Erickson Nichole Jr., DO PCP - General Pediatrics 09/15/16 Michell Saenz RN Carpenter MaintenanceWater Tender 08/02/23 08/06/23 Michell Saenz RN Carpenter MaintenanceWater Tender 07/06/24 07/10/24 documented as of this encounter
--- OUTSIDE RECORDS SUMMARY | 2024-11-19 05:27 | XMS_ITS | Encounter Summary ---
Author Organization [facility] Address [address] [place] [address] Care Team Providers Care Mental Retardation Aide Name Role Phone Dayanara Perea DO, Santiago B Primary Care Provider Michell Saenz RN Unavailable Michell Saenz RN Unavailable Reason for Visit * Reason Onset Date Comments General 04/25/2019 Encounter Details Date Type Department Care Team (Late st Contact Info) Description 04/25/2019 Telephone [facility] Pediatrics - Diabetes [id number] [place] [address] Alejandro Broderick, HARNESS INSPECTOR-REGULATORY LEAD [address] [place] [address] General Social History Tobacco Use Types Packs/Day Years Used Date Smoking Tobacco: Never Smokeless Tobacco: Never Alcohol Use Standard Drinks/Week Comments No 0 (1 standard drink = 0.6 oz pur e alcohol) Sex and Gender Information Value Date Recorded Sex Assigned at Male 11/11/2024 3:41 PM FRONT DESK REPRESENTATIVE Gender Identity Male 11/11/2024 3:41 PM FRONT DESK REPRESENTATIVE Sexual Orientation Straight 11/11/2024 3: 41 PM FRONT DESK REPRESENTATIVE documented as of this encounter Functional [...] Miscellaneous Notes * Telephone Encounter - Kavita Mcmahan RN - 06/27/2019 11:01 AM CDT Images from the original note were not included. Returned call to mother to review dexcom report. See below. Noted lows after >400 bgs. Mother reports giving HS corrections. Per injection protocol: Stop giving HS corrections Increase dinner to 1:4 Increase Lantus to 33. Call or Wednesday for review. * Telephone Encounter - Kavita Mcmahan RN - 06/09/2019 11:16 AM CDT Received call from school nurse. She reports Alejandro has been coming in with higher blood sugars and taking corrections because mother is texting him due to the Dexcom alerts. Nurse says she never sees the bgs or dosing. She was sent a school letter careplan today. I alerted her that an adult should still be involved and in charge of his diabetes management. He has improving a1c levels but on looking at the dexcom has been very elevated lately. I asked school nurse to check his dexcom e business specialist and note what he is eating so that she Aware of what amount of insulin he is to have. She stated she watches the dose he is taking and watches him take the insulin. However, she is unaware of the amount he should be receiving. I asked her to get weekly menu from school cafeteria and have carb counts available to speed process. She agreed. I also al erted her that if bgs are consistently elevated, nurse should alert mother and mother should notifyoffice. She was also asking for a carb counting chart. I will look into sending her one. Nothing available from of our office as of yet. School nurse to call mother and discuss. * Telephone Encounter - Kavita Mcmahan RN - 06/06/2019 10:50 AM CDT Images from the original note were not included. Mother called for Dexcom review. See above. No patterns noted. Asked mother to call back at [facility] the week for review. She agreed. * Telephone Encounter - Zeb Lucero RN - 04/25/2019 1:17 PM CDT I returned mom's call to discuss [place] Medicaid coverage of Omnipod, left message to return my call. To our knowledge, still no coverage. Call to discuss if needed. documented in this encounter Plan of Treatment Upcoming Encounters Date Type Department Care Team (Late st Contact Info) Description 02/01/2025 9:30 AM CDT Office Visit [facility] - Internal Med [address] [facility] [place] [phone] Raj Ladd MD [address] [place] [phone] documented as of this encounter Visit Diagnoses Not on filedocumented in this encounter Additional Health Concerns Infection Onset Date Last Indicated Resolved Time COVID-19 Under Investigation 09/23/2022 09/24/2022 09/24/2022 1:36 AM FRONT DESK REPRESENTATIVE COVID-19 Under Investigation 07/28/2023 07/28/2023 07/28/2023 9:35 PM CDT documented as of this encounter Care Teams Mental Retardation Aide Relationship Specialty Start Date End Date Erickson Nichole Jr., DO PCP - General Pediatrics 09/15/16 Michell Saenz RN Lithographic Retoucher ApprenticeWell Shooter 08/02/23 08/06/23 Michell Saenz RN Lithographic Retoucher ApprenticeWell Shooter 07/06/24 07/10/24 documented as of this encounter
--- OUTSIDE RECORDS SUMMARY | 2024-11-19 05:27 | XMS_ITS | Encounter Summary ---
Author Organization [facility] Address [address] [place] [address] Care Team Providers Care Rec Therapist Name Role Phone Dayanara Perea DO, Santiago B Primary Care Provider Michell Saenz RN Unavailable Michell Saenz RN Unavailable Reason for Visit * Reason Onset Date Comments Diabetes 01/16/2019 Encounter Details Date Type Department Care Team (Late st Contact Info) Description 01/16/2019 Telephone [facility] Pediatrics - Endocrinology [address] [place] [address] Alejandro Broderick, MOBILE UI/UX DESIGNER-FRONT FACER [address] [place] [address] Diabetes Social History Tobacco Use Types Packs/Day Years Used Date Smoking Tobacco: Never Smokeless Tobacco: Never Alcohol Use Standard Drinks/Week Comments No 0 (1 standard drink = 0.6 oz pur e alcohol) Sex and Gender Information Value Date Recorded Sex Assigned at Male 11/11/2024 3:41 PM PHOTOENGRAVING APPRENTICE Gender Identity Male 11/11/2024 3:41 PM PHOTOENGRAVING APPRENTICE Sexual Orientation Straight 11/11/2024 3: 41 PM PHOTOENGRAVING APPRENTICE documented as of this encounter Functional Status [...] Telephone Encounter - Tete Smith RN - 01/16/2019 10:37 AM CDT Mom called to discuss dexcom readings and consistently elevated BG's. Increased per protocol Lantusfrom 28 up to 31 units. Encouraged her to call back if BG's remain elevated. documented in this encounter Plan of Treatment Upcoming Encounters Date Type Department Care Team (Late st Contact Info) Description 02/01/2025 9:30 AM CDT Office Visit [facility] - Internal Med [address] [facility], [facility] [phone] Raj Ladd MD [address] [place] [phone] documented as of this encounter Visit Diagnoses Not on filedocumented in this encounter Additional Health Concerns Infection Onset Date Last Indicated Resolved Time COVID-19 Under Investigation 09/23/2022 09/24/2022 09/24/2022 1:36 AM PHOTOENGRAVING APPRENTICE COVID-19 Under Investigation 07/28/2023 07/28/2023 07/28/2023 9:35 PM CDT documented as of this encounter Care Teams Rec Therapist Relationship Specialty Start Date End Date Erickson Nichole Jr., PCP - General Pediatrics 09/15/16 Michell Saenz RN Admin AssistantCase Worker 08/02/23 08/06/23 Michell Saenz RN Admin AssistantCase Worker 07/06/24 07/10/24 documented as of this encounter
--- OUTSIDE RECORDS SUMMARY | 2024-11-19 05:27 | XMS_ITS | Encounter Summary ---
Author Organization [facility] Address [address] [place] [address] Care Team Providers Care Assembly Machine Feeder Name Role Phone Dayanara Perea DO, Santiago B Primary Care Provider Michell Saenz RN Unavailable Michell Saenz RN Unavailable Reason for Visit * Reason Comments Refill Request Encounter Details Date Type Department Care Team (Late st Contact Info) Description 01/24/[address] [address] Brianda Luz MD Refill Request Social History Tobacco Use Types Packs/Day Years Used Date Smoking Tobacco: Never Smokeless Tobacco: Never Alcohol Use Standard Drinks/Week Comments No 0 (1 standard drink = 0.6 oz pur e alcohol) Sex and Gender Information Value Date Recorded Sex Assigned at Male 11/11/2024 3:41 PM VIDEO TECHNICIAN Gender Identity Male 11/11/2024 3:41 PM VIDEO TECHNICIAN Sexual Orientation Straight 11/11/2024 3: 41 PM VIDEO TECHNICIAN documented as of this encounter Functional [...] Description 02/01/2025 9:30 AM CDT Office Visit [facility] - Internal Med [address] [facility], [facility] [place] [address] Raj Ladd MD [address] [place] [phone] documented as of this encounter Visit Diagnoses Not on filedocumented in this encounter Additional Health Concerns Infection Onset Date Last Indicated Resolved Time COVID-19 Under Investigation 09/23/2022 09/24/2022 09/24/2022 1:36 AM VIDEO TECHNICIAN COVID-19 Under Investigation 07/28/2023 07/28/2023 07/28/2023 9:35 PM CDT documented as of this encounter Care Teams Assembly Machine Feeder Relationship Specialty Start Date End Date Erickson Nichole Jr., PCP - General Pediatrics 09/15/16 Michell Saenz RN Customer ServicerMail Reader 08/02/23 08/06/23 Michell Saenz RN Customer ServicerMail Reader 07/06/24 07/10/24 documented as of this encounter
--- OUTSIDE RECORDS SUMMARY | 2024-11-19 05:27 | XMS_ITS | Encounter Summary ---
Author Organization [facility] Address [address] [place] [address] Care Team Providers Care Hand Binder Stripper Name Role Phone Dayanara Perea DO, Santiago B Primary Care Provider Michell Saenz RN Unavailable Michell Saenz RN Unavailable Encounter Details Date Type Department Care Team (Late st Contact Info) Description 06/19/2022 Telephone [facility] Pediatrics - Diabetes [id number] [place] [address] Cari Myles, PLASTIC PRODUCTS SALES REPRESENTATIVE-MANAGER AGENCY [address] [place] [phone] Social History Tobacco Use Types Packs/Day Years Used Date Smoking Tobacco: Never Smokeless Tobacco: Never Alcohol Use Standard Drinks/Week Comments No 0 (1 standard drink = 0.6 oz pur e alcohol) Sex and Gender Information Value Date Recorded Sex Assigned at Male 11/11/2024 3:41 PM REAL ESTATE SUBAGENT Gender Identity Male 11/11/2024 3:41 PM REAL ESTATE SUBAGENT Sexual Orientation Straight 11/11/2024 3: 41 PM REAL ESTATE SUBAGENT documented as of this encounter Functional Status [...] encounter Miscellaneous Notes * Telephone Encounter - YazObed - 06/19/2022 4:17 PM CDT Images from the original note were not included. Mom called to review bgs. See dexcom. Per protocol, see below for updated doses. I asked for familyto call this weekend for further review. INSULIN PUMP Omnipod 5 Auto Mode BASAL RATES TIME Units/hr 0000 1.2 TOTAL Basal for 24 hours CARB RATIO TIME 1 unit per____grams of carbohydrates 0000 7 5 SENSITIVITY TIME 1 unit of insulin lowers BG mg/dL 0000 50 40 TARGET TIME Target Blood Glucose 0000 120 (Correct above 130) 0600 110 (Correct above 120) 110 (Correct above 110) 2100 120 (Correct above 130) documented in this encounter Plan of Treatment Upcoming Encounters Date Type Department Care Team (Late st Contact Info) Description 02/01/2025 9:30 AM CDT Office Visit [facility] - Internal Med [address] [facility] [place] [phone] Raj Ladd MD [address] [place] [address] documented as of this encounter Visit Diagnoses Not on filedocumented in this encounter Additional Health Concerns Infection Onset Date Last Indicated Resolved Time COVID-19 Under Investigation 09/23/2022 09/24/2022 09/24/2022 1:36 AM REAL ESTATE SUBAGENT COVID-19 Under Investigation 07/28/2023 07/28/2023 07/28/2023 9:35 PM CDT documented as of this encounter Care Teams Hand Binder Stripper Relationship Specialty Start Date End Date Erickson Nichole Jr., DO PCP - General Pediatrics 09/15/16 Michell Saenz RN Design TransferrerAnalyst Microbiology Lab 08/02/23 08/06/23 Michell Saenz RN Design TransferrerAnalyst Microbiology Lab 07/06/24 07/10/24 documented as of this encounter
--- OUTSIDE RECORDS SUMMARY | 2024-11-19 05:27 | XMS_ITS | Clinical Summary ---
Author Organization [facility] Address [address] [place] [address] Care Team Providers Care Engineering Professor Name Role Phone Dayanara Perea DO, Santiago B Primary Care Provider Source Comments [facility],non-owned Affiliates and Associated Physician Practices is amultiple site organization consisting of ambulatory clinics and hospital sitesin [place], [place], [place] and [place]. This disclosure is being madepursuant to the Care Everywhere program and may not contain all information available regarding this patient. Last updated 18.[facility] Allergies No known active allergies Medications * Be aware that medications may not be up to date on this document. Alwaysverify current medications with the patient. Medication Sig Dispensed Refills Start Date End Date Status Glucagon (Baqsimi Two Pack) 3 MG/DOSE POWDIndications:Typ e 1 diabetes mellitus without complication (HCC) Aladdin 3 mg into the nose as needed [...] DAILY DOSE 100 UNITS/DAY 30 mL 07/04/2024 Active acetone,urine, (Ketostix) stripIndications:Ty pe 1 diabetes mellitus with hyperglycemia (HCC) USE TO TEST URINE KETONES WHEN BLOOD SUGAR IS GREATER THAN 300 OR WHEN ILL. MAX 2 TIMES DAILY 50 strip 07/04/2024 Active insulin aspart (NovoLOG) penIndications:Type 1 diabetes mellitus with hyperglycemia (HCC) INJECT SUBCUTANEOUSLY WITH MEALS/SNACKS AND FOR HYPERGLYCEMIA CORRECTIONS DIRECTED BY PROVIDER. MAX DAILY DOSE 100 UNITS/DAY 30 mL 07/04/2024 Active insulin glargine (Lantus/Semglee) 100 units/mL [...] on 10/02/2024 Insulin Disposable Pump (Omnipod 5 [id number] Pods Gen 5) MISCIndications:Typ e 1 diabetes [...] 09/15/16 Assessment & Plan (09/11/2020 2:41 PM MEDICAL GENETICS DIRECTOR): 1) must correct high blood sugars every [...] months Assessment & Plan (10/05/2016 2:06 PM MEDICAL GENETICS DIRECTOR): 1) no changes at this time 2) call in one week to review blood sugars 3) let me know about coverage for sensor 4) attend pump class when ready Assessment & Plan (09/17/2016 5:15 PM MEDICAL GENETICS DIRECTOR): Assessment: Alejandro Ca is an 10yo previously [...] recs Assessment & Plan (09/16/2016 1:21 PM MEDICAL GENETICS DIRECTOR): Assessment: Alejandro Ca is an 10yo previously [...] recs Assessment & Plan (09/15/2016 3:33 PM MEDICAL GENETICS DIRECTOR): Assessment: Alejandro Ca is an 10yo previously [...] gastroenteritis, given his recent international travel to [facility]. Pt reports eating sushi while there. He had a prolonged layover where he thinks he could have been sick. Negative COVID. He was also recently in the [place]. He denies diarrhea. Complicated by his DKA [...] male with known T1DM who presented to [facility] ED in DKA. Initial labs showed [...] male with known T1DM who presented to [facility] ED in DKA. Initial labs showed [...] closes Assessment & Plan (10/21/2022 3:13 AM MEDICAL GENETICS DIRECTOR): Assessment: Alejandro Ca is a 16 year [...] male with known T1DM who presented to [facility] ED with complaints of excessive vomiting, [...] q24 Assessment & Plan (10/15/2019 3:32 PM MEDICAL GENETICS DIRECTOR): Assessment: Alejandro is a 13 year old [...] PIV Assessment & Plan (10/09/2019 9:02 AM MEDICAL GENETICS DIRECTOR): Assessment: Alejandro is a 13 year old [...] consult ?? Cardio/Resp: -MEMO ?? Neuro/Pain: - [id number] mg q4 PRN for pain ?? Assessment & Plan (10/08/2019 2:52 PM MEDICAL GENETICS DIRECTOR): Assessment: Alejandro is a 13 year old [...] - continuous pulse ox ?? Neuro/Pain: - [id number] mg q4 PRN for pain - neuro checks q2 ?? Access: PIV Assessment & Plan (10/08/2019 12:46 PM MEDICAL GENETICS DIRECTOR): Assessment: Alejandro is a 13 year old male with known type 1 diabetes presenting with vomiting and abdominal pain. Labs and hx consistent with DKA. Plan: - [facility] FEN/GI/ENDO: - NPO - IV per protocol - TF - D5 1/2 NS + 1 ml/hr - 1/2 NS 180 ml/hr - insulin gtt at 0.1 U/kg/hr - glucose check q1h - BMP q4 - Urine ketones qvoid - SW consult - Diabetes education consult - Nutrition consult Cardio/Resp: - Vitals q2 - CR monitors - continuous pulse ox Neuro/Pain: - [id number] mg q4 PRN for pain - neuro checks q2 Access: PIV Encounters Date Type Department Care Team Description 11/17/2024 Telephone [facility] - Endocrinology [address] [place] [address], [place] [address] Fallon Valenzuela, RN Follow-up 11/15/2024 Telephone [facility] - Centralized Scheduling [address] [place] [phone] Laura Rivas APRN-CNP 11/13/2024 Refill [facility] Pediatrics - Diabetes Mgmt [address] [facility] [place] [address] Nina Mueller, DO MEDICATION REFILL 11/13/2024 Refill [facility] - Endocrinology [address] [place] [phone] Laura Rivas APRN-CNP MEDICATION REFILL 11/13/2024 Refill [facility] - Endocrinology [address] [place] [phone] Laura Rivas APRN-CNP MEDICATION REFILL 11/06/2024 Refill [facility] Pediatrics - Diabetes Mgmt [address] [facility] [place] [address] Nina Mueller, DO Refill Request 10/26/2024 Refill [facility] Pediatrics - Diabetes Mgmt [address] [facility] [place] [address] Nina Mueller, DO Refill Request 10/13/2024 Telephone [facility] - Endocrinology [facility] [place] [address] [phone] Fallon Valenzuela, RN Follow-up 10/02/2024 9:20 AM MEDICAL GENETICS DIRECTOR Office Visit [facility] - Endocrinology [facility] [place] [address] [address] Laura Rivas APRN-CNP Type 1 diabetes mellitus without complication (HCC) (Primary Dx) 10/02/2024 Travel 09/12/2024 Travel from Last 3 Months Immunizations Name Administration Dates Next Due INFLUENZA [...] Conj 09/07/2005,05/07/2005, TDAP (7yrs+) 12/25/2015 VARICELLA 06/02/2010,12/24/2006 Family History Medical History Relation Name Comments Type 2 Diabetes Mellitus Father Relation Name Status Comments Father Diagnosed at ag e 37 Social History Tobacco Use Types Packs/Day Years [...] Recorded Patient Health Questionnaire-2 Score 0 11/26/2022 [facility] of Occupat ional Health - Occupational [...] place to sleep or slept in a retirement (including now)? No 07/03/2024 Sex and Gender Information Value Date Recorded Sex Assigned at Male 11/11/2024 3:41 PM MEDICAL GENETICS DIRECTOR Gender Identity Male 11/11/2024 3:41 PM MEDICAL GENETICS DIRECTOR Sexual Orientation Straight 11/11/2024 3: 41 PM MEDICAL GENETICS DIRECTOR Last Filed Vital Signs Vital Sign Reading Time Taken Comments Blood Pressure 120/81 10/02/2024 9:17 AM MEDICAL GENETICS DIRECTOR Pulse 72 10/02/2024 9:17 AM MEDICAL GENETICS DIRECTOR Temperature 36.6 ??C (97.8 ??F) 10/02/2024 9:17 AM CS T Respiratory Rate 19 07/05/2024 8:25 AM CDT Oxygen Saturation 98% 10/02/2024 9:17 AM MEDICAL GENETICS DIRECTOR Inhaled Oxygen Concentration - - Weight 72.7 kg (160 lb 3.2 oz) 10/02/2024 9:17 A M MEDICAL GENETICS DIRECTOR Height 173 cm (5' 8.11 ) 07/03/2024 8:12 PM CDT Body Mass Index 24.28 07/03/2024 8:12 PM CDT Plan of Treatment Upcoming Encounters Date Type Department Care Team (Late st Contact Info) Description 02/01/2025 9:30 AM CDT Office Visit [facility] - Internal Med [address] [facility], [place] [address] Raj Ladd MD [address] [place] [address] Health Maintenance Due Date Last Done Comments DIABETES RETINOPATHY SCREENING 10/02/2016 DIABETES-FOOT EXAM WITH MONOFILAMENT 10/02/2016 HIV SCREENING 2019 MENINGOCOCCAL (Group B) VACCINE (1 of 2 - Standard) 2020 COVID-19 VACCINE ( - season) 2024 INFLUENZA VACCINE (#1) 2024 , 10/09/2019, 07/26/2018, Additional history exists DEPRESSION SCREENING 10/18/2024 11/26/2022 DIABETES - URINE PROTEIN SCREENING 10/18/2024 07/30/2023, 06/28/2023, 07/10/2022, Additional history exists DIABETES-HGB A1C 12/31/2024 10/02/2024, , 12/21/2023, Additional history exists DIABETES-SERUM CREATININE 07/05/20252023, 07/04/2024, 07/04/2024, Additional history exists DTAP/TDAP/TD VACCINES (6 - Td or Tdap) 12/24/2025 12/25/2015, 06/02/2010, 08/31/2005, Additional history exists PNEUMOCOCCAL VACCINE (2 of 2 - PCV20 or PCV21) 2054 12/18/2022, 09/07/2005, 05/07/2005, Additional history exists ZOSTER VACCINE (1 of 2) 2054 HEPATITIS B VACCINE Completed 08/31/2005, 01/05/2005, 2004 HIB VACCINE Aged Out 09/07/2005, 04/18, 03/11/2005 No longer eligible based on patient's age to complete this topic HPV VACCINE Completed 08/05/2018, 06/02/2017 MENINGOCOCCAL VACCINE Completed 06/10/2022 , 06/10/2022, 12/25/2015, Additional history exists HEPATITIS C SCREENING Completed 12/18/2022 Goals Goal Patient Goal Type Associated Problems Recent Progress Patient-Stated? Author Use safety retraint in car Lifestyle On track( 023 12:25 PM MEDICAL GENETICS DIRECTOR) No Libby Shipley Procedures Procedure Name Priority Date/Time Associated Diagnosis Comments HEMOGLOBIN A1C - POINT OF CARE (AMB) [facility] Routine 10/02/2024 9:26 AM MEDICAL GENETICS DIRECTOR Type 1 diabetes mellitus without complication (HCC) BASIC METABOLIC PANEL (CALCIUM TOTAL) Routine 07/05/2024 4:00 AM CDT MICROALB/CREAT RATIO URINE RANDOM PANEL Routine 07/30/2023 12:44 PM CDT HEPATITIS SCREEN ACUTE Routine 12/18/2022 10:20 AM MEDICAL GENETICS DIRECTOR Elevated LFTs from Last 3 Months or Most Recently Relevant to Health Maintenance Results * HEMOGLOBIN A1C - POINT OF CARE (AMB) [facility] (10/02/2024 9:26 AM MEDICAL GENETICS DIRECTOR) Hemoglobin A1c POCT 8.6 % [facility] [address] BLOOD SPECIMEN / Unknown 10/02/2024 9:26 AM MEDICAL GENETICS DIRECTOR Laura Rivas EVAPORATOR OPERATOR MOLASSES-SEISMOLOGY TECHNICAL OFFICER LAB - POINT OF CARE ORDERABLES [facility] [address], [facility] [address] [place] [address], [facility] [phone] * (ABNORMAL) BASIC METABOLIC PANEL (CALCIUM TOTAL) (07/05/2024 4:00 AM CDT) BUN 10 7 - 26 mg/dL 07/05/2024 4:49 AM [facility] Creatinine 0.54(L) 0.71 - 1.16 mg/dL 07/05/2024 4:49 AM [facility] Sodium 138 136 - 145 mmol/L 07/05/2024 4:49 AM [facility] Potassium 3.4(L) 3.5 - 4.5 mmol/L 07/05/2024 4:49 AM [facility] Chloride 109(H) 98 - 107 mmol/L 07/05/2024 4:49 AM [facility] CO2 23 22 - 29 mmol/L 07/05/2024 4:49 AM [facility] Glucose 110 70 - 115 mg/dL 07/05/2024 4:49 AM [facility] Calcium 8.0(L) 8.4 - 10.2 mg/dL 07/05/2024 4:49 AM [facility] Anion Gap 6 6 - 16 07/05/2024 4:49 AM [facility] BUN/Creatinine Ratio 19 7 - 23 07/05/2024 4:49 AM [facility] Osmolality Calculated 286 275 - 295 mOsm/kg 07/05/2024 4:49 AM [facility] eGFR by CKD-EPI >90 >=90 mL/min/1.7 3 m2 07/05/2024 4:49 AM [facility] Blood BLOOD SPECIMEN / Unknown Lab Venipuncture / Unknown 07/05/2024 4:00 AM CDT 07/05/2024 4:11 AM CDT Armand Hogan MD LAB - CHEMISTRY PAOLA GHOTRA [facility] Organization Address City/State/ZIP Co de Phone Number [facility] [address] [place] [address], [facility] [phone] * MICROALB/CREAT RATIO URINE RANDOM PANEL (07/30/2023 12:44 PM CDT) Albumin Random Urine <5.0 Not Established ug/mL 07/30/2023 1:19 PM [facility] Creatinine Urine 19.80 Not Established mg/dL 07/30/2023 1:19 PM T [facility] Urine Albumin/Creati nine Ratio <25 <30 mg/g 07/30/2023 1:19 PM [facility] Albumin/Creati nine Ratio Urine See Comment <30 mg/g 07/30/2023 1:19 PM [facility] Comment:Unable to calculate the Urine Albumin/Creatinine Ratio due to one or more analyte concentration(s) being outside the measuring limits of the instrument. Urine URINE SPECIMEN OBTAINED BY CLEAN CATCH PROCEDURE / Unknown Collection / Unknown 07/30/2023 12:44 PM CDT 07/30/2023 12:57 PM CDT Nina Mueller DO LAB - URINE CHEMISTR Y ORDERABLES Performing Organization Address City/State/[facility] Co de Phone Number [facility] [address] [place] [phone], [facility] [phone] * HEPATITIS SCREEN ACUTE (12/18/2022 10:20 AM MEDICAL GENETICS DIRECTOR) Hepatitis A Virus Antibody IgM Non-react lizeth Non-reac tive 12/18/2022 11:26 AM [facility] Hepatitis B Virus Surface Antigen Non-react lizeth Non-reac tive 12/18/2022 11:26 AM [facility] Hepatitis B Core Virus Antibody IgM Non-react lizeth Non-reac tive 12/18/2022 11:26 AM [facility] Hepatitis C Antibody Non-react lizeth Non-reac tive 12/18/2022 11:26 AM [facility] Comment:Hepatitis C Antibody screen indicates no serologic evidence of past or current infection with Hepatitis C Virus. Patients with unexplained liver disease who are immunocompromised or suspected of having acute Hepatitis C infection may benefit from Nucleic Acid Test (JAKE) for Hepatitis C Viral RNA to confirm Hepatitis C status. Blood BLOOD SPECIMEN / Unknown Lab Venipuncture / Unknown 12/18/2022 10:20 AM MEDICAL GENETICS DIRECTOR 12/18/2022 10:37 AM MEDICAL GENETICS DIRECTOR Toni Dover MD LAB - CHEMISTRY PAOLA Iqbal Organization Address City/State/ZIP Co de Phone Number [facility] [address] [place] [address], [facility] [phone] from Last 3 Months or Most Recently Relevant to Health Maintenance Advance Directives * Full Code (Latest Code [...] 1:31 PM 10/09/2019 2:26 PM Care Teams Engineering Professor Relationship Specialty Start Date End Date Erickson Nichole Jr., PCP - General Pediatrics 09/15/16
--- OUTSIDE RECORDS SUMMARY | 2024-11-19 05:27 | XMS_ITS | Encounter Summary ---
Author Organization [facility] Address [address] [place] [address] Care Team Providers Care Hand Sander Name Role Phone Dayanara Perea DO, Santiago B Primary Care Provider Michell Saenz RN Unavailable Michell Saenz RN Unavailable Reason for Visit * Reason Onset Date Comments Letter for School or Work 11/18/2018 Encounter Details Date Type Department Care Team (Late st Contact Info) Description 11/18/2018 Telephone [facility] Pediatrics - Diabetes [id number] [place] [address] Alejandro Broderick, GLUCOSE AND SYRUP WEIGHER-SPORTS PHYSICIAN [address] [place] [address] Letter for School or Work Social History Tobacco Use Types Packs/Day Years Used Date Smoking Tobacco: Never Smokeless Tobacco: Never Alcohol Use Standard Drinks/Week Comments No 0 (1 standard drink = 0.6 oz pur e alcohol) Sex and Gender Information Value Date Recorded Sex Assigned at Male 11/11/2024 3:41 PM TRUCK CRANE OPERATOR Gender Identity Male 11/11/2024 3:41 PM TRUCK CRANE OPERATOR Sexual Orientation Straight 11/11/2024 3: 41 PM TRUCK CRANE OPERATOR documented as of this encounter Functional [...] Telephone Encounter - Zeb Lucero RN - 11/18/2018 12:57 PM CST Priscilla from school called and left a message requesting new school care plan be faxed to [phone]. Note from 11/01/18 indicates care plan was faxed at that time, I don't show dose adjustments since then so I called mom. Left message to notify our office of current breakfast,lunch, correction dosesso that another care plan can be sent to Priscilla. PRISCILLA P [phone] F [phone] K CRANE OPERATOR documented in this encounter Plan of Treatment Upcoming Encounters Date Type Department Care Team (Late st Contact Info) Description 02/01/2025 9:30 AM CDT Office Visit [facility] - Internal Med [address] [place] [phone] Raj Ladd MD [address] [place] [phone] documented as of this encounter Visit Diagnoses Not on filedocumented in this encounter Additional Health Concerns Infection Onset Date Last Indicated Resolved Time COVID-19 Under Investigation 09/23/2022 09/24/2022 09/24/2022 1:36 AM TRUCK CRANE OPERATOR COVID-19 Under Investigation 07/28/2023 07/28/2023 07/28/2023 9:35 PM CDT documented as of this encounter Care Teams Hand Sander Relationship Specialty Start Date End Date Erickson Nichole Jr., PCP - General Pediatrics 09/15/16 Michell Saenz, RN Laundry AidHose Wrapper 08/02/23 08/06/23 Michell Saenz RN Laundry AidHose Wrapper 07/06/24 07/10/24 documented as of this encounter
--- OUTSIDE RECORDS SUMMARY | 2024-11-19 05:27 | XMS_ITS | Encounter Summary ---
Author Organization [facility] Address [address] [place] [address] Care Team Providers Care Breakdown Person Name Role Phone Dayanara Perea DO, Santiago B Primary Care Provider Michell Saenz RN Unavailable Michell Saenz RN Unavailable Encounter Details Date Type Department Care Team (Late st Contact Info) Description 02/27/2019 Telephone [facility] Pediatrics - Diabetes [address] [address] Grace Moss DO [address] [place] [id number] Social History Tobacco Use Types Packs/Day Years Used Date Smoking Tobacco: Never Smokeless Tobacco: Never Alcohol Use Standard Drinks/Week Comments No 0 (1 standard drink = 0.6 oz pur e alcohol) Sex and Gender Information Value Date Recorded Sex Assigned at Male 11/11/2024 3:41 PM PROCUREMENT PROFESSIONAL LOGISTICS Gender Identity Male 11/11/2024 3:41 PM PROCUREMENT PROFESSIONAL LOGISTICS Sexual Orientation Straight 11/11/2024 3: 41 PM PROCUREMENT PROFESSIONAL LOGISTICS documented as of this encounter Functional Status [...] Telephone Encounter - Tete Smith RN - 02/27/2019 9:39 AM CDT Images from the original note were not included. Patient's mother called to report his evening BG's have been elevated. See Dexcom clarity report images below. Per protocol I've increased his Lantus to 30 units nightly. documented in this encounter Plan of Treatment Upcoming Encounters Date Type Department Care Team (Late st Contact Info) Description 02/01/2025 9:30 AM CDT Office Visit [facility] - Internal Med [address] [facility] [place] [phone] Raj Ladd MD [address] [place] [phone] documented as of this encounter Visit Diagnoses Not on filedocumented in this encounter Additional Health Concerns Infection Onset Date Last Indicated Resolved Time COVID-19 Under Investigation 09/23/2022 09/24/2022 09/24/2022 1:36 AM PROCUREMENT PROFESSIONAL LOGISTICS COVID-19 Under Investigation 07/28/2023 07/28/2023 07/28/2023 9:35 PM CDT documented as of this encounter Care Teams Breakdown Person Relationship Specialty Start Date End Date Erickson Nichole Jr., PCP - General Pediatrics 09/15/16 Michell Saenz RN Core Machine TenderSilverware Assembler 08/02/23 08/06/23 Michell Saenz RN Core Machine TenderSilverware Assembler 07/06/24 07/10/24 documented as of this encounter
--- OUTSIDE RECORDS SUMMARY | 2024-11-19 05:27 | XMS_ITS | Encounter Summary ---
Author Organization [facility] Address [address] [place] [address] Care Team Providers Care Sample Carrier Name Role Phone Dayanara Perea DO, Santiago B Primary Care Provider Michell Saenz RN Unavailable Encounter Details Date Type Department Care Team (Late st Contact Info) Description 01/27/2024 Telephone [facility] Pediatrics - Diabetes Mgmt [address] [facility] [place] [address] Cari Myles, COURT MAGISTRATE-DIVING JUDGE [address] [place] [phone] Social History Tobacco Use Types Packs/Day Years [...] Recorded Patient Health Questionnaire-2 Score 0 11/26/2022 [facility] [place] of Occupat ional Health - Occupational Stress [...] place to sleep or slept in a fpc (including now)? No 07/29/2023 Sex and Gender Information Value Date Recorded Sex Assigned at Male 11/11/2024 3:41 PM EVENT CREW TECHNICIAN Gender Identity Male 11/11/2024 3:41 PM EVENT CREW TECHNICIAN Sexual Orientation Straight 11/11/2024 3: 41 PM EVENT CREW TECHNICIAN documented as of this encounter Functional [...] * Telephone Encounter - Obed Mukherjee - 01/27/2024 3:32 PM CDT Alejandro called asking for a return call. Attempted to call back. Left message on machine. documented in this encounter Plan of Treatment Upcoming Encounters Date Type Department Care Team (Late st Contact Info) Description 02/01/2025 9:30 AM CDT Office Visit [facility] Group - Internal Med [address] [facility] [place] [address] Raj Ladd MD [address] [place] [phone] documented as of this encounter Goals Goal Patient Goal Type Associated Problems Recent Progress Patient-Stated? Author Use safety retraint in car Lifestyle On track( 023 12:25 PM EVENT CREW TECHNICIAN) No Libby Shipley documented as of this encounter Visit Diagnoses Not on filedocumented in this encounter Care Teams Sample Carrier Relationship Specialty Start Date End Date Erickson Nichole Jr., PCP - General Pediatrics 09/15/16 Michell Saenz, YAMILETH Zinc Chloride OperatorLead Software Test Engineer 07/06/24 07/10/24 documented as of this encounter
--- OUTSIDE RECORDS SUMMARY | 2024-11-19 05:27 | XMS_ITS | Encounter Summary ---
Author Organization [facility] Address [address] [place] [address] Care Team Providers Care Wool Presser Name Role Phone Dayanara Perea DO, Santiago B Primary Care Provider Michell Saenz RN Unavailable Michell Saenz RN Unavailable Encounter Details Date Type Department Care Team (Late st Contact Info) Description 12/04/2019 Telephone [facility] Pediatrics - Diabetes [address] [address] Farooq Bradshaw MD [address] [place] [id number] Social History Tobacco Use Types Packs/Day Years Used Date Smoking Tobacco: Never Smokeless Tobacco: Never Alcohol Use Standard Drinks/Week Comments No 0 (1 standard drink = 0.6 oz pur e alcohol) Sex and Gender Information Value Date Recorded Sex Assigned at Male 11/11/2024 3:41 PM INTERIOR DESIGNER Gender Identity Male 11/11/2024 3:41 PM INTERIOR DESIGNER Sexual Orientation Straight 11/11/2024 3: 41 PM INTERIOR DESIGNER documented as of this encounter Functional Status [...] Telephone Encounter - Kavita Mcmahan RN - 12/12/2019 2:04 PM INTERIOR DESIGNER Images from the original note were not included. Mother called to discuss bgs, stating he has been elevated since his last hospitalization (10/15/2019). Returned call. No answer. Left voicemail on identified line that we need to speak to her to assess control. RIOR DESIGNER * Telephone Encounter - Jenelle Oneal RN - 2019 4:31 PM CST I returned call to Alejandro's mother after discussing with Dr. Bradshaw before call. I reviewed recent blood sugars and I asked mother if anything different was done when Alejandro had in range blood sugars. Mother did not have any insight as to why few blood sugars were in range. I let mother know that the Lantus to be continued at 40 units but she must be giving this injectionat all times. Mother states she has been giving Alejandro the Lantus herself. I spoke to her about discussing again with Alejandro if any extra food is being eaten without dosing insulin for. Alejandro has denied that he is sneaking food. It was discussed with Dr. Bradshaw that the only change to be made today would be the correction dose to be increased to 3 units for every 50 over 150 with a max of 18 units. I asked that mother call back next week around Wednesday to review blood sugars or sooner if needed. RIOR DESIGNER * Telephone Encounter - Jenelle Oneal RN - 2019 4:14 PM CST Images from the original note were not included. I returned mother's call to review blood sugars after reviewing Dexcom, left voice message to call the office back. RIOR DESIGNER * Telephone Encounter - Tete Smith RN - 12/04/2019 4:42 PM CST Images from the original note were not included. I returned mom's call to review Alejandro's blood sugars. Please see Dexcom Clarity review below. Perprotocol I recommended mom to increase Lantus to 40 units (20% increase) and call back on Wednesday for review and possible change at meal times. Mom did not answer, LMOM. RIOR DESIGNER documented in this encounter Plan of Treatment Upcoming Encounters Date Type Department Care Team (Late st Contact Info) Description 02/01/2025 9:30 AM CDT Office Visit [facility] - Internal Med [address] [facility], [facility] [place] [phone] Raj Ladd MD [address] [place] [id number] documented as of this encounter Visit Diagnoses Not on filedocumented in this encounter Additional Health Concerns Infection Onset Date Last Indicated Resolved Time COVID-19 Under Investigation 09/23/2022 09/24/2022 09/24/2022 1:36 AM INTERIOR DESIGNER COVID-19 Under Investigation 07/28/2023 07/28/2023 07/28/2023 9:35 PM CDT documented as of this encounter Care Teams Wool Presser Relationship Specialty Start Date End Date Erickson Nichole Jr., DO PCP - General Pediatrics 09/15/16 Michell Saenz, RN Chain HookerReceiving Dock Checker 08/02/23 08/06/23 Michell Saenz, RN Chain HookerReceiving Dock Checker 07/06/24 07/10/24 documented as of this encounter
--- OUTSIDE RECORDS SUMMARY | 2024-11-19 05:27 | XMS_ITS | Encounter Summary ---
Author Organization [facility] Address [address] [place] [address] Care Team Providers Care Manager Aerospace Name Role Phone Dayanara Perea DO, Santiago B Primary Care Provider Michell Saenz RN Unavailable Michell Saenz RN Unavailable Reason for Visit * Reason Onset Date Comments General 06/06/2020 Encounter Details Date Type Department Care Team (Late st Contact Info) Description 06/06/2020 Telephone [facility] Pediatrics - Diabetes [address] [place] [address] Alejandro Broderick, CERAMIC WORKER-ELECTRIC STOP INSTALLER [address] [place] [address] General Social History Tobacco Use Types Packs/Day Years Used Date Smoking Tobacco: Never Smokeless Tobacco: Never Alcohol Use Standard Drinks/Week Comments No 0 (1 standard drink = 0.6 oz pur e alcohol) Sex and Gender Information Value Date Recorded Sex Assigned at Male 11/11/2024 3:41 PM ASSEMBLY RIVETER Gender Identity Male 11/11/2024 3:41 PM ASSEMBLY RIVETER Sexual Orientation Straight 11/11/2024 3: 41 PM ASSEMBLY RIVETER COVID-19 Exposure Response Date Recorded In the last month, have you been in contact with someone who was confirmed or suspected to have Coronavirus / COVID-19? No / Unsure 05/29/2020 11:07 AM CDT documented as of this encounter Functional Status [...] Telephone Encounter - Zeb Lucero RN - 06/06/2020 11:02 AM CDT Spoke with mom, they have [facility] via [place] Medicaid. They are paying out of pocket for the Dexcom and mom said the Dexcom website states that [facility] [place] is covered. I faxed PA packets, sent rxs, notes to both [place] [facility] and [facility]. Will call mom once determination is made. documented in this encounter Plan of Treatment Upcoming Encounters Date Type Department Care Team (Late st Contact Info) Description 02/01/2025 9:30 AM CDT Office Visit [facility] - Internal Med [address] [facility] [place] [place] [id number] Raj Ladd MD [address] [place] [address] documented as of this encounter Visit Diagnoses Not on filedocumented in this encounter Additional Health Concerns Infection Onset Date Last Indicated Resolved Time COVID-19 Under Investigation 09/23/2022 09/24/2022 09/24/2022 1:36 AM ASSEMBLY RIVETER COVID-19 Under Investigation 07/28/2023 07/28/2023 07/28/2023 9:35 PM CDT documented as of this encounter Care Teams Manager Aerospace Relationship Specialty Start Date End Date Erickson Nichole Jr., DO PCP - General Pediatrics 09/15/16 Michell Saenz RN Gang RiderJob Honer 08/02/23 08/06/23 Michell Saenz RN Gang RiderJob Honer 07/06/24 07/10/24 documented as of this encounter
== END 2024-11-19 05:37 | disposition home or self-care (01) ==
LOC: ANHED 05:24
PROVIDERS: Emergency Provider Emergency Medicine
DX: S09.90XA Unspecified injury of head, initial encounter (principal); S40.212A Abrasion of left shoulder, initial encounter; S50.811A Abrasion of right forearm, initial encounter; Y04.0XXA Assault by unarmed brawl or fight, initial encounter
CPT/HCPCS: 99282